=== PATIENT | female | born 1930 | race Caucasian/White ===

== ENCOUNTER → 2018-02-15 | Day surgery (SDC) | payer OTHER ==
[~2018-02-15] MED LIST: ACETAMINOPHEN/HYDROcodone 325 MG/5 MG TAB ONE; ALLO100T PO; BUME1TAB PO; CHOL5000 PO; COUM3TAB PO; CYAN1000P IM; ENAL2.5; HYDR-3583 PO; IOHEXOL 180 MG/ML 20 ML VIAL (for RAD DIAG) OTHER ONE; ISOS10TA3 PO; ISOS10TA35 PO; LACTATED RINGER'S 1000 ML INJ 1,000 ML ONE; LEVO.05 PO; LEVO125T4 PO; LEVO500T8 PO; LIDOCAINE HCL 1% 20 ML VIAL ONE; MAGN250T11 PO; MAPA500C PO; METF500 PO; METO100T PO; METO25CR PO; MIDAZOLAM HCL 2 MG/2 ML VIAL ONE; OXYB5TAB8 PO; PROPOFOL 100 MG/10 ML INJ IV ONE; SODI1 PO; SODI1TAB PO; TRIAMCINOLONE ACETONIDE 40 MG/ML VIAL ONE; VITA500015 CHEW; XARE10TA PO; XARE20TA PO
== END | disposition home or self-care (01) ==
LOC: ESDC 08:34
PROVIDERS: ATTEND Orthopaedic Surgery Orthopaedic Surgery of the Spine
DX: M25.551 Pain in right hip (principal); T84.090D Other mechanical complication of internal right hip prosthesis, subsequent encounter
CPT/HCPCS: 01200; 27275; 73501; 76000; 87015; 87070; 87116; 87205; 87206; J2250; J3010; J7120; Q9965; J3301

== ENCOUNTER 2018-02-22 09:34 | Inpatient (IN) | payer OTHER, MEDICARE ==
[~2018-02-22] VITALS: Ht 152.4 cm; Wt 79.5 kg
[~2018-02-22 09:34] MED LIST changes: -ACETAMINOPHEN/HYDROcodone 325 MG/5 MG TAB ONE; -COUM3TAB PO; -ENAL2.5; -HYDR-3583 PO; -IOHEXOL 180 MG/ML 20 ML VIAL (for RAD DIAG) OTHER ONE; -ISOS10TA35 PO; -LACTATED RINGER'S 1000 ML INJ 1,000 ML ONE; -LEVO.05 PO; -LEVO500T8 PO; -LIDOCAINE HCL 1% 20 ML VIAL ONE; -METF500 PO; -METO25CR PO; -MIDAZOLAM HCL 2 MG/2 ML VIAL ONE; -PROPOFOL 100 MG/10 ML INJ IV ONE; -SODI1 PO; -TRIAMCINOLONE ACETONIDE 40 MG/ML VIAL ONE; -VITA500015 CHEW; -XARE10TA PO
[2018-02-22] MEDS ORDERED: CHLORHEXIDINE GLUCONATE 4% SOLN 120 ML BTL TOPICAL SCH (10:15)
[2018-02-22] MEDS ORDERED: EXPAREL PERI-ARTICULAR INJECTION (TOTAL VOL. 60 ML) P-ARTICULR SCH ×2 (10:15)
[2018-02-22] MEDS ORDERED: VANCOMYCIN 1 GM/200 ML PREMIX IV SCH (10:15)
[2018-02-22] MEDS ORDERED: TRANEXAMIC ACID INJ 795 MG in SODIUM CHLORIDE 0.9% INJ 100 ML IV SCH (10:15)
[2018-02-22] MEDS ORDERED: VANCOMYCIN HCL 1000 MG VIAL ONE ×2 (10:26→15:29)
[2018-02-22] MEDS ORDERED: SODIUM CHLOR 0.9% 250 ML INJ 250 ML ONE (10:26)
[2018-02-22] MEDS ORDERED: CHLORHEXIDINE GLUCONATE 2 % 1 PACK (2 CLOTHS) TOPICAL PRN (10:30)
[2018-02-22] MEDS ORDERED: POVIDONE IODINE 5% (ANTISEPSIS KIT) 4 APPLICATIONS EACH NARE PRN (10:30)
[2018-02-22] MEDS ORDERED: INSULIN HUMAN REGULAR 1,000 UNITS/10 ML VIAL SQ PRN (10:30)
[2018-02-22] MEDS ORDERED: METOPROLOL TARTRATE 25 MG TAB PO PRN (10:30)
[2018-02-22] MEDS ORDERED: SODIUM CHLORID 0.9% 500 ML IV PRN (10:30)
[2018-02-22] MEDS ORDERED: LACTATED RINGER'S 1000 ML IV PRN (10:30)
[2018-02-22] MEDS ORDERED: LEVO500T8 PO (10:53)
[2018-02-22 10:59] LABS: AUTOMATED NEUTROPHIL # 3.5 TH/MM3 (1.8-7.7); BASOPHIL % 0.7 % (0.0-2.0); EOSINOPHIL # 0.2 TH/MM3 (0-0.4); EOSINOPHIL % 3.1 % (0.0-4.0); HEMATOCRIT 36.1 % (35.0-46.0); HEMOGLOBIN 11.8 GM/DL (11.6-15.3); LYMPH % 25.1 % (9.0-44.0); LYMPHOCYTE # 1.4 TH/MM3 (1.0-4.8); MEAN CELL VOLUME 89.8 FL (80.0-100.0); MEAN CORPUSCULAR HEMOGLOBIN 29.5 PG (27.0-34.0); MEAN CORPUSCULAR HGB CONC 32.8 % (32.0-36.0); MEAN PLATELET VOLUME 8.3 FL (7.0-11.0); MONO % 7.6 % (0.0-8.0); MONOCYTE # 0.4 TH/MM3 (0-0.9); NEUT % 63.5 % (16.0-70.0); PLATELET COUNT 185 TH/MM3 (150-450); RED BLOOD COUNT 4.02 MIL/MM3 (4.00-5.30); RED CELL DISTRIBUTION WIDTH 16.3 % (11.6-17.2); WHITE BLOOD COUNT 5.5 TH/MM3 (4.0-11.0)
[2018-02-22 11:21] LABS: BILIRUBIN, URINE NEG (NEG); BLOOD, URINE NEG (NEG); GLUCOSE,URINE NEG (NEG); KETONE, URINE NEG (NEG); NITRITE,URINE NEG (NEG); SQUAMOUS EPITHELIAL CELL URINE 1 /hpf (0-5); URINE COLOR LIGHT-YELLOW (YELLW/STRAW); URINE LEUKOCYTE ESTERASE SMALL (NEG)
[2018-02-22 11:24] LABS: BICARBONATE 28.3 MEQ/L (21.0-32.0); CALCIUM 9.1 MG/DL (8.5-10.1)
[2018-02-22] MEDS ORDERED: GENTAMICIN SULFATE 80 MG/2 ML VIAL ONE (12:23)
[2018-02-22] MEDS ORDERED: ceFAZolin INJ 1,000 MG VIAL ONE (12:23)
[2018-02-22] MEDS ORDERED: HEPARIN SODIUM - SQ 10,000 UNITS/ML VIAL ONE (12:24)
[2018-02-22] MEDS ORDERED: GELFOAM SIZE 100 ONE (12:24)
[2018-02-22] MEDS ORDERED: SUGAMMADEX SODIUM 200 MG/2 ML VIAL IV PUSH ONE (12:57)
[2018-02-22] MEDS ORDERED: ACETAMINOPHEN 1000 MG/100 ML 100 ML IV ONE (12:57)
[2018-02-22] MEDS ORDERED: HYDROmorphone HCL PF 2 MG/ML VIAL ONE (12:57)
[2018-02-22] MEDS ORDERED: NALOXONE HCL 0.4 MG/ML AMP ONE (12:58)
[2018-02-22] MEDS ORDERED: SODIUM CHLORIDE 0.9% 20 ML VIAL ONE (14:18)
[2018-02-22] MEDS ORDERED: BUPIVACAINE/EPINEPHRINE 0.25% PF 10 ML VIAL INFIL ONE (15:04)
--- NOTE | 2018-02-22 16:58 | PD.OP ---
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 Painful right total hip Postoperative Diagnosis: Same Procedure: Revision right total hip replacement arthroplasty. Right femoral shaft osteotomy with internal fixation and repair Anesthesia: General Surgeon: Carlton Galindo Link Trainer(s): YAZMIN Mack Operation and Findings: EBL: 800 cc INDICATION: This patient is an 87-year-old female with severe pain in her right hip. Investigative studies shows evidence of fatigue of a right femoral stem which was placed in her in 1998. It has lived beyond its life expectancy and she is now had a failure of the stem. She now presents for revision arthroplasty NOTE: Linn Mack PA-C was present for the entire surgical procedure as my tiler's assistant. In my medical opinion her skill and care was necessary for the proper management of this patient. COMPONENTS: COMPANY: [employer] CUP: Duraloc, 52 mm STEM: Size 12 mm, AML straight stem, small triangle, 8 inch HEAD: 32 mm, +5 12/14 taper, metal Plastic: 32 mm, constrained PROCEDURE: This patient was brought to the operating room and anesthetized in the supine position and positioned on the routine table in the clean air suite. The patient was then rolled to a right side up lateral position and held with a Biomet hip positioner. The hip and leg was scrubbed with alcohol followed by Hibiclens followed by chloro prep and draped sterilely. A timeout was done and antibiotics were given within a routine time window. A 7 inch incision was made starting along the posterior one third of the greater trochanter. The iliotibial band was opened in line with the incision. The Charnley retractors were positioned. The posterior capsule and external rotators were taken down together in a sleeve. The posterior capsule was approached. An arthrotomy was created. Soft tissue was dissected around the proximal femur. The femoral stem was loose. The hip was dislocated posteriorly. An osteotome was used to remove some heterotopic bone near the top of the femur. The proximal portion of the stem was removed in a retrograde fashion. Soft tissue dissection was removed around the plastic. Moderate wear of popliteal polyethylene was noted. The plastic was removed in a retrograde fashion. The locking ring was removed. A 28 mm trial plastic was positioned to protect the cup. The cup was quite stable and orientation was felt to be satisfactory. The posterior aspect of the femur was dissected. The gluteus gonzalo was taken down from the linea aspera. The stem was measured carefully and an osteotomy was planned. An oscillating saw was used from posterior to anterior. A TPS drill was used with a bur at the level of the osteotomy. The greater trochanter and femoral shaft was opened in a coffin lid type fashion. The very top of the stem was identified. The leg was brought around into the proper position. A bur was used to gain entrance into the interface between the bone and the prosthesis. A trephine drill was used to drill over the remnant portion of the stem. The stem was then removed in retrograde fashion. There was a pedestal at the tip of the stem. This was drilled through with the drill followed by all of reamers up to 11 mm. We then switched to straight reamers and reamed the canal anticipating at 8 inch straight stem. We reamed to 11.5 mm. A trial reduction showed excellent balancing with the stem in approximately 15 of anteversion. The hip appeared to be very stable. The attention was directed to the acetabulum. The trial liner was removed. This child was checked and it was quite stable. A new ring was placed on the inside and a 32 mm locking acetabular liner was impacted and felt to be stable. The canal was reamed one more time with a straight 11-1/2 mm reamer. An 8 inch 12 mm stem, small triangle was utilized. This is impacted approximately 15 of anteversion. The stem had a very solid fit especially over the last 6 cm. Rotational control was felt to be very satisfactory as well as axial control. A trial reduction showed the +5 neck length fit best. A 32 mm metal +5 head was impacted. The hip was reduced. The retaining ring was placed around this. Leg lengths appeared to be equal. The wound was irrigated copiously. A super cable was placed around the shaft of the femur just before placement of the stem. The osteotomy was contoured slightly and then closed and 6 secured with 2 cables. The system was tightened according to shredder tender's recommendation. Vancomycin powder was placed deep. The wound was irrigated prior to placing that. The gluteus gonzalo tendon was repaired at its insertion. The fascia was closed with running double loop PDS. Vancomycin powder was placed in the subcutaneous tissue. Deep tissue was approximated with 0 Vicryl suture, subcutaneous tissue with 2-0 Vicryl suture and skin with running intradermal 3- 0 Vicryl followed by benzoin and Steri-Strips. A sterile dressing was applied. The patient was awakened and taken to the recovery room in satisfactory condition The patient was awakened and taken to the recovery room in satisfactory condition FINDINGS: There was a fracture of the stem approximately midportion. Bone quality was felt to be satisfactory. There is no complication that was appreciated Carlton Galindo MD February 22, 2018 16:58
[2018-02-22] MEDS: LACTATED RINGER'S 1000 ML INJ 1,000 ML IV SCH (17:00)
[2018-02-22] MEDS ORDERED: MORPHINE SULFATE 8 MG/ML INJ IM PRN (17:00)
[2018-02-22] MEDS ORDERED: ACETAMINOPHEN/HYDROcodone 325 MG/10 MG TAB PO PRN (17:00)
[2018-02-22] MEDS ORDERED: Post-op Orders (for Pharmacy) XX ONE (17:00)
[2018-02-22] MEDS ORDERED: ALUMINUM/MAGNESIUM/SIMETH 30 ML CUP PO PRN (17:00)
[2018-02-22] MEDS ORDERED: NALOXONE HCL 0.4 MG/ML AMP IV PUSH PRN (17:00)
[2018-02-22] MEDS ORDERED: DO NOT ADM ANY ANTICOAGULANT DRUGS PRN (17:18)
[2018-02-22] MEDS ORDERED: *morphine SULFATE 10 MG/ML PERIprocedure ONLY ONE ×2 (17:20→17:57)
[2018-02-22] MEDS ORDERED: MORPHINE SULFATE 4 MG/ML INJ ONE (17:22)
[2018-02-22] MEDS ORDERED: HYDR-3583 PO (17:35)
[2018-02-22] MEDS ORDERED: XARE10TA PO (17:35)
--- NOTE | 2018-02-22 17:47 | RADRPT ---
EXAM DATE/TIME: 02/22/2018 18:23 [place] COMPARISON: No previous studies available for comparison. INDICATIONS : Total right hip arthroplasty. MEDICAL HISTORY : Hypertension. Diabetes mellitus type 2. SURGICAL HISTORY : None. ENCOUNTER: Initial ACUITY: 1 day PAIN SCORE: 10/10 LOCATION: Right hip FINDINGS: A two view examination of the right hip was performed. Postoperative right total hip replacement. Nor mal alignment. Osteotomy proximal right femur. CONCLUSION: 1. Postoperative right hip replacement. Normal alignment. Moises Abdalla MD on February 22, 2018 at 17:44 Board Certified Radiologist. This report was verified electronically.
[2018-02-22] MEDS: ACETAMINOPHEN/HYDROcodone 325 MG/10 MG TAB PO PRN ×2 (18:52→23:08)
[2018-02-22 19:37] VITALS: BP 101/56; PULSE 89; RESP 18; TEMP 97.7; O2SAT 97
[2018-02-22] MEDS: MAGNESIUM HYDROXIDE SUSP 30 ML CUP PO SCH (20:52)
[2018-02-22] MEDS: SENNOSIDES 8.6 MG TAB PO SCH (20:53)
[2018-02-22] MEDS: BUMETANIDE 1 MG TAB PO SCH (20:53)
[2018-02-22 23:00] VITALS: BP 119/54; PULSE 64; RESP 16; TEMP 97.3; O2SAT 97
[2018-02-23] VITALS (8 sets, daily range): BP systolic 93–117; BP diastolic 42–57; PULSE 60–77; RESP 17–18; TEMP 97.3–97.7; O2SAT 92–98
[2018-02-23] MEDS: TEMAZEPAM 15 MG CAP PO PRN (01:12)
[2018-02-23 04:06] LABS: HEMATOCRIT 26.7 % (35.0-46.0); HEMOGLOBIN 8.8 GM/DL (11.6-15.3)
[2018-02-23] MEDS: LEVOTHYROXINE SODIUM 125 MCG TAB PO SCH (05:10)
[2018-02-23] MEDS: ACETAMINOPHEN/HYDROcodone 325 MG/10 MG TAB PO PRN ×3 (05:10→14:05)
[2018-02-23] MEDS: LACTATED RINGER'S 1000 ML INJ 1,000 ML IV SCH ×3 (05:11→20:17)
--- NOTE | 2018-02-23 07:49 | PD.ORT.PN ---
Subjective Subjective Remarks No complaint. Very little pain. Daughter at bedside. Pleased with results so far Objective Vitals Vital Signs Date Time Temp Pulse Resp B/P (MAP) Pulse Ox O2 Delivery O2 Flow Rate FiO2 02/23/18 04:04 97.3 68 17 98/57 (71) 98 02/22/18 23:00 97.3 64 16 119/54 (75) 97 02/22/18 19:37 97.7 89 18 101/56 (71) 97 02/22/18 18:15 98.1 93 15 103/62 (76) 96 Nasal Cannula 3 02/22/18 18:00 60 11 94/57 (69) 98 Nasal Cannula 3 02/22/18 17:45 85 14 117/65 (82) 98 Nasal Cannula 3 02/22/18 17:30 85 14 114/60 (78) 98 Nasal Cannula 3 02/22/18 17:15 96.6 88 15 114/55 (74) 95 Nasal Cannula 3 02/22/18 10:38 97.8 65 20 158/77 (104) 95 I/O 02/22/18 02/22/18 02/22/18 02/23/18 02/23/18 02/23/18 07:00 15:00 23:00 07:00 15:00 23:00 Intake Total 3500 ml 240 ml Output Total 1690 ml 340 ml Balance 1810 ml -100 ml Intake Oral 240 ml Other 3500 ml Output Urine Total 800 ml 300 ml Drainage Total 90 ml 40 ml Estimated Blood Loss 800 ml # Bowel Movements 0 Result Diagram: 02/23/18 0351 02/22/18 1030 Imaging Last 24 hours Impressions Hip X-Ray 02/22/18 1479 Signed Impressions: Service Date/Time: February 18:23 - CONCLUSION: 1. Postoperative right hip replacement. Normal alignment. Moises Abdalla MD Objective Remarks Patient is lying in bed. Right hip incision with no drainage. Mild swelling. No redness or warmth. Leg lengths equal. No calf tenderness. Neuro exam normal Assessment & Plan Assessment and Plan Malfunctioning right total hip replacement. Broken right femoral stem ([facility] [place] [facility] 1998). SURGERY: Revision right [facility] [place] [facility]ESUS, femoral shaft osteotomy with internal fixation: POD #1. PLAN: Toe-touch weightbearing. Patient on Xarelto 10 mg per day for 1 week then increase back to preop dosage of 20 mg per day. [place] as needed for pain. Anticipate SNF on Monday. Forms filled out. No dressing change unless it becomes saturated. DC drain today Carlton Galindo MD February 23, 2018 07:49
--- NOTE | 2018-02-23 07:51 | HHI.DCPOC ---
Discharge Care Plan Diagnosis: (1) Loose total hip arthroplasty Additional Problems History of chronic anticoagulation Goals to Promote Your Health * To prevent worsening of your condition and complications * To maintain your health at the optimal level Directions to Meet Your Goals Take your medications as prescribed Follow your dietary instruction Follow activity as directed Keep your appointments as scheduled Take your immunizations and boosters as scheduled If your symptoms worsen call your PCP, if no PCP go to Urgent Care Center or Emergency Room Smoking is Dangerous to Your Health. Avoid second hand smoke Call the 24-hour hour crisis hotline for domestic abuse at Carlton Galindo MD February 23, 2018 07:51
--- NOTE | 2018-02-23 07:55 | HHI.DS ---
Discharge Summary Admission Date February 22, 2018 at 09:34 Discharge Date: February 25, 2018 Admitting Diagnosis Malfunctioning right total hip replacement Diagnosis: Procedures Revision right total hip replacement. Right femoral shaft osteotomy with internal fixation Brief History This is a 87 year old female patient CBC/BMP: 02/23/18 0351 02/22/18 1030 Significant Findings Laboratory Tests Test 02/22/18 10:30 02/23/18 03:51 Urine Leukocyte Esterase SMALL (NEG) Blood Urea Nitrogen 19 MG/DL (7-18) Random Glucose 109 MG/DL (74-106) Estimat Glomerular Filtration Rate 52 ML/MIN (>89) Hemoglobin 8.8 GM/DL (11.6-15.3) Hematocrit 26.7 % (35.0-46.0) Imaging Postoperative x-ray of the right hip show satisfactory position of the right total hip replacement PE at Discharge Patient is lying in bed. Right hip incision with no drainage. Mild swelling. No redness or warmth. Leg lengths equal. No calf tenderness. Neuro exam normal Hospital Course The patient was admitted electively for total hip replacement. She had a previous total hip replaced in 1998 and suffered a broken stem related to fatigue. She presents for elective revision arthroplasty. She was admitted to the hospital and taken to the operating room and the date of admission. She had an 800 cc blood loss. Postoperative hemoglobin was 8.8. This was monitored and her postoperative course Discharge Disposition: Discharge to SNF Discharge Instructions Diet Instructions: As Tolerated, No Restrictions Activities You Can Perform: Toe Touch Weight Bearing Activities to Avoid: Lifting/Bending, Bathing (For 7 days) Additional Activity Instruc.: Routine total hip precaution, posterior hip precautions. The patient does not need an abduction pillow Carlton Galindo MD February 23, 2018 07:54
[2018-02-23] MEDS ORDERED: WALKER/ADULT/FO1 MIS (07:56)
[2018-02-23] MEDS: METOPROLOL TARTRATE 100 MG TAB PO SCH (08:51)
[2018-02-23] MEDS: BUMETANIDE 1 MG TAB PO SCH ×2 (08:51→20:15)
[2018-02-23] MEDS: ALLOPURINOL 100 MG TAB PO SCH (08:51)
[2018-02-23] MEDS: OXYBUTYNIN CHLORIDE 5 MG TAB PO SCH (08:51)
[2018-02-23] MEDS: SODIUM CHLORIDE 1 GRAM TAB PO SCH (08:52)
[2018-02-23] MEDS: MAGNESIUM HYDROXIDE SUSP 30 ML CUP PO SCH ×2 (08:52→20:15)
[2018-02-23] MEDS ORDERED: LEVOFLOXACIN 500 MG TAB PO SCH (09:00)
[2018-02-23] MEDS: ISOSORBIDE MONONITRATE 20 MG TAB PO SCH (09:00)
[2018-02-23] MEDS: RIVAROXABAN 10 MG TAB PO SCH (16:46)
[2018-02-23] MEDS: ONDANSETRON ODT 4 MG TAB PO PRN (18:46)
[2018-02-23] MEDS: SENNOSIDES 8.6 MG TAB PO SCH (20:15)
[2018-02-24] MEDS: ACETAMINOPHEN/HYDROcodone 325 MG/10 MG TAB PO PRN ×2 (03:51→09:14)
[2018-02-24 04:59] VITALS: O2SAT 94
[2018-02-24] MEDS: LEVOTHYROXINE SODIUM 125 MCG TAB PO SCH (05:20)
--- NOTE | 2018-02-24 07:21 | PD.ORT.PN ---
Subjective Subjective Remarks pt has post operative hip pain Objective Vitals Vital Signs Date Time Temp Pulse Resp B/P (MAP) Pulse Ox O2 Delivery O2 Flow Rate FiO2 02/24/18 04:59 94 02/24/18 04:41 18 02/23/18 23:19 97.5 68 17 117/55 (75) 95 02/23/18 23:04 Room Air 02/23/18 19:34 97.6 77 18 107/57 (74) 92 02/23/18 16:00 97.6 69 18 116/57 (76) 95 02/23/18 12:52 96/42 (60) 02/23/18 12:49 97.7 60 18 93 02/23/18 12:00 93/53 (66) 02/23/18 09:06 97.6 66 18 106/51 (69) 96 I/O 02/23/18 02/23/18 02/23/18 02/24/18 02/24/18 02/24/18 07:00 15:00 23:00 07:00 15:00 23:00 Intake Total 240 ml 100 ml 1900 ml 480 ml Output Total 340 ml 75 ml 165 ml 30 ml Balance -100 ml 25 ml 1735 ml 450 ml Intake Oral 240 ml 900 ml 480 ml IV Total 100 ml 1000 ml Output Urine Total 300 ml 5 ml 75 ml Drainage Total 40 ml 70 ml 90 ml 30 ml Bladder Scan Volume Amount 48 ml # Voids 1 5 # Bowel Movements 0 1 0 Result Diagram: 02/23/18 0351 02/22/18 1030 Imaging Last 24 hours Impressions Hip X-Ray 02/22/18 1659 Signed Impressions: Service Date/Time: February 18:23 - CONCLUSION: 1. Postoperative right hip replacement. Normal alignment. Moises Abdalla MD Procedures Revision right total hip replacement. Right femoral shaft osteotomy with internal fixation Objective Remarks pt comfortable Right hip incision with no drainage. Mild swelling. No redness or warmth. Leg lengths equal. No calf tenderness. Neuro exam normal Assessment & Plan Assessment and Plan Malfunctioning right total hip replacement. Broken right femoral stem ([facility] [place] [facility] 1998). SURGERY: Revision right [facility]IA [facility] JESUS, femoral shaft osteotomy with internal fixation: POD #2. PLAN: Toe-touch weightbearing. Patient on Xarelto 10 mg per day for 1 week then increase back to preop dosage of 20 mg per day. [place] as needed for pain. Anticipate SNF on Monday. Forms filled out. No dressing change unless it becomes saturated OOB to chair today d/c drain today Will Galindo MD February 24, 2018 07:21
[2018-02-24 08:00] VITALS: BP 136/62; PULSE 75; RESP 18; TEMP 98; O2SAT 97
[2018-02-24] MEDS: MAGNESIUM HYDROXIDE SUSP 30 ML CUP PO SCH ×2 (08:23→19:54)
[2018-02-24] MEDS: BUMETANIDE 1 MG TAB PO SCH ×2 (08:27→19:52)
[2018-02-24] MEDS: SODIUM CHLORIDE 1 GRAM TAB PO SCH (08:28)
[2018-02-24] MEDS: ISOSORBIDE MONONITRATE 20 MG TAB PO SCH (08:28)
[2018-02-24] MEDS: METOPROLOL TARTRATE 100 MG TAB PO SCH (08:28)
[2018-02-24] MEDS: ALLOPURINOL 100 MG TAB PO SCH (08:28)
[2018-02-24] MEDS: ONDANSETRON ODT 4 MG TAB PO PRN (08:28)
[2018-02-24] MEDS: OXYBUTYNIN CHLORIDE 5 MG TAB PO SCH (08:28)
[2018-02-24] MEDS: LEVOFLOXACIN 250 MG TAB PO SCH (08:28)
[2018-02-24] MEDS: LACTATED RINGER'S 1000 ML INJ 1,000 ML IV SCH ×2 (13:52→19:54)
[2018-02-24] MEDS: RIVAROXABAN 10 MG TAB PO SCH (18:21)
[2018-02-24] MEDS ORDERED: ACETAMINOPHEN 325 MG TAB PO PRN (19:15)
[2018-02-24] MEDS: ACETAMINOPHEN 325 MG TAB PO PRN (19:53)
[2018-02-24] MEDS: SENNOSIDES 8.6 MG TAB PO SCH (19:54)
[2018-02-24 19:55] VITALS: BP 102/49; PULSE 70; RESP 16; TEMP 98.1; O2SAT 98
[2018-02-25 00:15] VITALS: BP 102/55; PULSE 77; RESP 17; TEMP 97.9; O2SAT 94
[2018-02-25] MEDS: TEMAZEPAM 15 MG CAP PO PRN (02:02)
[2018-02-25] MEDS: ACETAMINOPHEN 325 MG TAB PO PRN ×3 (02:05→19:55)
[2018-02-25] MEDS: LEVOTHYROXINE SODIUM 125 MCG TAB PO SCH (06:08)
--- NOTE | 2018-02-25 06:50 | PD.ORT.PN ---
Subjective Subjective Remarks pt has post operative hip pain, states she had diarrhea yesterday all day, feeling better today Objective Vitals Vital Signs Date Time Temp Pulse Resp B/P (MAP) Pulse Ox O2 Delivery O2 Flow Rate FiO2 02/25/18 00:15 97.9 77 17 102/55 (71) 94 02/24/18 19:55 98.1 70 16 102/49 (66) 98 02/24/18 10:14 17 02/24/18 08:00 98.0 75 18 136/62 (86) 97 I/O 02/24/18 02/24/18 02/24/18 02/25/18 02/25/18 02/25/18 07:00 15:00 23:00 07:00 15:00 23:00 Intake Total 480 ml Output Total 30 ml Balance 450 ml Intake Oral 480 ml Drainage Total 30 ml # Voids 5 6 # Bowel Movements 0 5 Result Diagram: 02/24/18 0632 02/22/18 1030 Imaging Last 24 hours Impressions Hip X-Ray 02/22/18 1659 Signed Impressions: Service Date/Time: February 18:23 - CONCLUSION: 1. Postoperative right hip replacement. Normal alignment. Moises Abdalla MD Procedures Revision right total hip replacement. Right femoral shaft osteotomy with internal fixation Objective Remarks pt doing better today Right hip incision with no drainage. Mild swelling. No redness or warmth. Leg lengths equal. No calf tenderness. Neuro exam normal Assessment & Plan Assessment and Plan Malfunctioning right total hip replacement. Broken right femoral stem ([facility] [place] J[facility] 1998). SURGERY: Revision right MARIA DE JESUS, femoral shaft osteotomy with internal fixation: POD #3 PLAN: Toe-touch weightbearing. Patient on Xarelto 10 mg per day for 1 week then increase back to preop dosage of 20 mg per day. [place] as needed for pain. Anticipate SNF today. Forms filled out. Ferrous sulfate 325 bid for surgical blood loss anemia No dressing change unless it becomes saturated Called patient's daughter and spoke to her about her mother, clinical condition and discharge plan Will Galindo MD February 25, 2018 06:50
[2018-02-25 08:00] VITALS: BP 111/56; PULSE 62; RESP 18; TEMP 98; O2SAT 92
[2018-02-25] MEDS: ISOSORBIDE MONONITRATE 20 MG TAB PO SCH (08:58)
[2018-02-25] MEDS: BUMETANIDE 1 MG TAB PO SCH ×2 (08:58→19:55)
[2018-02-25] MEDS: FERROUS SULFATE 325 MG (65 MG ELEMENTAL IRON) TAB PO SCH ×2 (08:59→19:55)
[2018-02-25] MEDS: SODIUM CHLORIDE 1 GRAM TAB PO SCH (08:59)
[2018-02-25] MEDS: LEVOFLOXACIN 250 MG TAB PO SCH (09:00)
[2018-02-25] MEDS: OXYBUTYNIN CHLORIDE 5 MG TAB PO SCH (09:00)
[2018-02-25] MEDS: METOPROLOL TARTRATE 100 MG TAB PO SCH (09:00)
[2018-02-25] MEDS: ALLOPURINOL 100 MG TAB PO SCH (09:00)
[2018-02-25] MEDS: MAGNESIUM HYDROXIDE SUSP 30 ML CUP PO SCH ×2 (09:00→19:55)
[2018-02-25] MEDS: LACTATED RINGER'S 1000 ML INJ 1,000 ML IV SCH ×3 (09:52→19:56)
[2018-02-25 12:00] VITALS: BP 87/50; PULSE 71; RESP 16; TEMP 98; O2SAT 92
[2018-02-25 16:00] VITALS: BP 108/53; PULSE 73; RESP 16; TEMP 98.1; O2SAT 96
[2018-02-25] MEDS: RIVAROXABAN 10 MG TAB PO SCH (17:39)
[2018-02-25] MEDS: SENNOSIDES 8.6 MG TAB PO SCH (19:55)
[2018-02-25 20:07] VITALS: BP 105/55; PULSE 71; RESP 17; TEMP 97.6; O2SAT 92
[2018-02-26 00:45] VITALS: BP 115/55; PULSE 60; RESP 17; TEMP 97.8; O2SAT 92
[2018-02-26] MEDS: ACETAMINOPHEN 325 MG TAB PO PRN ×2 (05:37→12:10)
[2018-02-26] MEDS: LEVOTHYROXINE SODIUM 125 MCG TAB PO SCH (05:37)
[2018-02-26 07:39] VITALS: BP 150/65; PULSE 70; RESP 18; TEMP 98.1; O2SAT 94
[2018-02-26] MEDS: SODIUM CHLORIDE 1 GRAM TAB PO SCH (08:28)
[2018-02-26] MEDS: ALLOPURINOL 100 MG TAB PO SCH (08:28)
[2018-02-26] MEDS: METOPROLOL TARTRATE 100 MG TAB PO SCH (08:29)
[2018-02-26] MEDS: OXYBUTYNIN CHLORIDE 5 MG TAB PO SCH (08:29)
[2018-02-26] MEDS: BUMETANIDE 1 MG TAB PO SCH ×2 (08:29→19:56)
[2018-02-26] MEDS: LEVOFLOXACIN 250 MG TAB PO SCH (08:29)
[2018-02-26] MEDS: ISOSORBIDE MONONITRATE 20 MG TAB PO SCH (08:29)
[2018-02-26] MEDS: FERROUS SULFATE 325 MG (65 MG ELEMENTAL IRON) TAB PO SCH ×2 (08:29→19:56)
[2018-02-26] MEDS: MAGNESIUM HYDROXIDE SUSP 30 ML CUP PO SCH ×2 (08:31→19:55)
[2018-02-26 11:26] VITALS: BP 107/56; PULSE 66; RESP 18; TEMP 98.1; O2SAT 95
[2018-02-26 15:34] VITALS: BP 103/58; PULSE 69; RESP 18; TEMP 97.5; O2SAT 94
[2018-02-26] MEDS: LACTATED RINGER'S 1000 ML INJ 1,000 ML IV SCH ×2 (15:52→23:04)
[2018-02-26] MEDS ORDERED: ACETAMINOPHEN/HYDROcodone 325 MG/5 MG TAB PO PRN (16:00)
[2018-02-26] MEDS: RIVAROXABAN 10 MG TAB PO SCH (16:01)
[2018-02-26] MEDS: ACETAMINOPHEN/HYDROcodone 325 MG/5 MG TAB PO PRN ×2 (16:01→19:59)
[2018-02-26] MEDS: SENNOSIDES 8.6 MG TAB PO SCH (19:55)
[2018-02-26 20:00] VITALS: BP 131/56; PULSE 69; RESP 18; TEMP 97.2; O2SAT 93
[2018-02-27] MEDS: ACETAMINOPHEN/HYDROcodone 325 MG/5 MG TAB PO PRN ×4 (00:02→16:47)
[2018-02-27] MEDS: TEMAZEPAM 15 MG CAP PO PRN (00:02)
[2018-02-27 00:51] VITALS: BP 118/58; PULSE 64; RESP 18; TEMP 98.6; O2SAT 93
[2018-02-27] MEDS: LEVOTHYROXINE SODIUM 125 MCG TAB PO SCH (05:34)
[2018-02-27 07:31] VITALS: BP 151/75; PULSE 75; RESP 19; TEMP 97.6; O2SAT 93
[2018-02-27] MEDS: SODIUM CHLORIDE 1 GRAM TAB PO SCH (07:48)
[2018-02-27] MEDS: BUMETANIDE 1 MG TAB PO SCH (07:49)
[2018-02-27] MEDS: FERROUS SULFATE 325 MG (65 MG ELEMENTAL IRON) TAB PO SCH (07:49)
[2018-02-27] MEDS: LEVOFLOXACIN 250 MG TAB PO SCH (07:49)
[2018-02-27] MEDS: ISOSORBIDE MONONITRATE 20 MG TAB PO SCH (07:49)
[2018-02-27] MEDS: METOPROLOL TARTRATE 100 MG TAB PO SCH (07:49)
[2018-02-27] MEDS: ALLOPURINOL 100 MG TAB PO SCH (07:49)
[2018-02-27] MEDS: MAGNESIUM HYDROXIDE SUSP 30 ML CUP PO SCH (07:50)
[2018-02-27] MEDS: OXYBUTYNIN CHLORIDE 5 MG TAB PO SCH (07:50)
--- NOTE | 2018-02-27 07:54 | PD.ORT.PN ---
Subjective Subjective Remarks No complaint. Mild pain. Still here because of no authorization by her insurance company for transfer to assisted Objective Vitals Vital Signs Date Time Temp Pulse Resp B/P (MAP) Pulse Ox O2 Delivery O2 Flow Rate FiO2 02/27/18 07:31 97.6 75 19 151/75 (100) 93 02/27/18 00:51 98.6 64 18 118/58 (78) 93 02/26/18 20:00 97.2 69 18 131/56 (81) 93 02/26/18 17:01 18 02/26/18 15:34 97.5 69 18 103/58 (73) 94 02/26/18 13:10 18 02/26/18 11:26 98.1 66 18 107/56 (73) 95 I/O 02/26/18 02/26/18 02/26/18 02/27/18 02/27/18 02/27/18 07:00 15:00 23:00 07:00 15:00 23:00 Intake Total 360 ml 500 ml Output Total 0 ml Balance 360 ml 500 ml Intake Oral 360 ml 500 ml Stool Total 0 ml # Voids 3 4 2 # Bowel Movements 0 0 0 Result Diagram: 02/24/18 0632 Imaging Last 24 hours Impressions Hip X-Ray 02/22/18 1659 Signed Impressions: Service Date/Time: February 18:23 - CONCLUSION: 1. Postoperative right hip replacement. Normal alignment. Moises Abdalla MD Procedures Revision right total hip replacement. Right femoral shaft osteotomy with internal fixation Objective Remarks Right hip incision with no drainage. Mild swelling. No redness or warmth. Leg lengths equal. No calf tenderness. Neuro exam normal Assessment & Plan Assessment and Plan Malfunctioning right total hip replacement. Broken right femoral stem ([facility]IA [place] JESUS 1998). SURGERY: Revision right [facility]IA [facility] JESUS, femoral shaft osteotomy with internal fixation: POD #5 PLAN: Toe-touch weightbearing. Patient on Xarelto 10 mg per day for 1 week then increase back to preop dosage of 20 mg per day. [place] as needed for pain. Anticipate SNF today. Forms filled out. Ferrous sulfate 325 bid for surgical blood loss anemia No dressing change unless it becomes saturated Case discussed with Fang, nurse optical store manager. We will transfuse 1 unit of packed red blood cells Carlton Galindo MD February 27, 2018 07:54
[2018-02-27 11:30] VITALS: BP 121/58; PULSE 61; RESP 18; TEMP 98.5; O2SAT 94
[2018-02-27] MEDS: LACTATED RINGER'S 1000 ML INJ 1,000 ML IV SCH (11:52)
[2018-02-27 13:09] VITALS: BP 133/60; PULSE 66; RESP 18; TEMP 97.6; O2SAT 93
[2018-02-27 13:24] VITALS: BP 138/66; PULSE 72; RESP 18; TEMP 97.6; O2SAT 94
[2018-02-27] MEDS: RIVAROXABAN 10 MG TAB PO SCH (16:47)
[2018-02-27 17:00] VITALS: BP 140/63; PULSE 60; RESP 18; TEMP 98.3; O2SAT 95
--- NOTE | 2018-02-28 07:29 | HHI.DS ---
Discharge Summary Admission Date February 22, 2018 at 09:34 Discharge Date: February 27, 2018 Admitting Diagnosis Malfunctioning right total hip replacement arthroplasty Diagnosis: (1) Loose total hip arthroplasty ICD Codes: T84.038A - Mechanical loosening of other internal prosthetic joint, initial encounter; Z96.649 - Presence of unspecified artificial hip joint Procedures Revision right total hip replacement. Right femoral shaft osteotomy with internal fixation Brief History This is a 87 year old female patient with a history of right total hip replacement performed in [place] approximately 19 years ago. Within the last 2 months she had become severely painful. Studies showed no evidence of infection. X-ray show evidence of a broken femoral stem in the proximal third. She is felt to be a candidate for revision total hip replacement CBC/BMP: 02/24/18 0632 Imaging Postoperative x-ray of the right hip shows evidence of internal fixation around the femoral shaft osteotomy with a revision total hip replacement stem in good alignment and position PE at Discharge Right hip incision with no drainage. Mild swelling. No redness or warmth. Leg lengths equal. No calf tenderness. Neuro exam normal Hospital Course The patient was admitted electively for revision hip arthroplasty. She had the above procedure performed on the date of admission. Her postoperative course was relatively unremarkable. Hemoglobin drifted below 8 and she received a unit of packed red blood cells on postop day #5. She was transferred to senior care on postop day #5. Pt Condition on Discharge: Good Discharge Disposition: Discharge to SNF Discharge Instructions Diet Instructions: As Tolerated, No Restrictions Activities You Can Perform: Toe Touch Weight Bearing Activities to Avoid: Lifting/Bending, Bathing (For 7 days) Additional Activity Instruc.: Routine total hip precaution, posterior hip precautions. The patient does not need an abduction pillow Carlton Galindo MD February 28, 2018 07:29
== END 2018-02-27 17:11 | DRG 467 ==
LOC: HSDI 09:34 → N06B 18:41
PROVIDERS: ADMIT Orthopaedic Surgery Orthopaedic Surgery of the Spine; ATTEND Orthopaedic Surgery Orthopaedic Surgery of the Spine
PROC: 0SUA09Z Supplement Right Hip Joint, Acetabular Surface with Liner, Open Approach (ICD-10-PCS; 2018-02-22)
PROC: 0SRR0JA Replacement of Right Hip Joint, Femoral Surface with Synthetic Substitute, Uncemented, Open Approach (ICD-10-PCS; 2018-02-22)
PROC: 0SPR0JZ Removal of Synthetic Substitute from Right Hip Joint, Femoral Surface, Open Approach (ICD-10-PCS; 2018-02-22)
PROC: 0SP909Z Removal of Liner from Right Hip Joint, Open Approach (ICD-10-PCS; principal; 2018-02-22 13:22)
PROC: 30233N1 Transfusion of Nonautologous Red Blood Cells into Peripheral Vein, Percutaneous Approach (ICD-10-PCS; 2018-02-27)
DX: T84.060A Wear of articular bearing surface of internal prosthetic right hip joint, initial encounter (principal); D62 Acute posthemorrhagic anemia; I48.91 Unspecified atrial fibrillation; N39.0 Urinary tract infection, site not specified; E66.9 Obesity, unspecified; Z96.642 Presence of left artificial hip joint; E11.9 Type 2 diabetes mellitus without complications; I73.9 Peripheral vascular disease, unspecified; I10 Essential (primary) hypertension; E78.5 Hyperlipidemia, unspecified; M81.0 Age-related osteoporosis without current pathological fracture; E03.9 Hypothyroidism, unspecified; I25.10 Atherosclerotic heart disease of native coronary artery without angina pectoris; R19.7 Diarrhea, unspecified; Z95.0 Presence of cardiac pacemaker; Z86.73 Personal history of transient ischemic attack (TIA), and cerebral infarction without residual deficits; Z86.718 Personal history of other venous thrombosis and embolism; Z68.34 Body mass index [BMI] 34.0-34.9, adult
CPT/HCPCS: 36430; 73502; 80048; 81001; 85014; 85018; 85025; 86850; 86900; 86901; 86920; 94150; C1713; C1776; J0131; J0690; J1170; J1580; J1644; J2270; J2310; J3010; J3370; J7050; J7120; P9016

== ENCOUNTER 2018-05-07 13:36 | Inpatient (IN) ==
[2018-05-07] MEDS ORDERED: Vancomycin Inj 1 GM/200 ML PIGGYBACK IV.SIG ONE (14:41)
[2018-05-07] MEDS ORDERED: Vancomycin Inj 1,000 MG in Sodium Chlor 0.9% Inj 250 ML IV.SIG ONE (15:00)
--- NOTE | 2018-05-07 15:12 | ED ---
HPI General Chief complaint: Medical Clearance Stated complaint: Medical Complaint Time Seen by Provider: 05/07/18 14:23 Source: patient and family Mode of arrival: wheelchair Limitations: no limitations History of Present Illness HPI narrative: 87-year-old female that presents to the ED for evaluation of right hip infection. Per patient she is been having redness and discomfort on the right hip since Monday. She was seen by Dr. Plascencia's office and had some blood work did not show any sign of acute disease at the time. I told her to apply ice and to reevaluate on Monday. She went again today to the office and they noticed that she had discharge from the wound where she had a hip replacement in February. She was told to come here. Prior to Dr. Plascencia himself of the day wound culture of the fluid. Patient was sent here for evaluation and admission for further evaluation of possible infection. Patient states that currently her pain is 4 out of 10. She states that the hip feels warm. Able to move it fully. Denies any numbness, drooling, weakness. Currently takes no antibiotics. States that she is borderline diabetic. No history of immunosuppression. No injury or trauma. Related Data Home Medications Medication Instructions Recorded Confirmed allopurinol 100 mg PO DAILY 05/07/18 05/07/18 bumetanide 1 mg PO DAILY 05/07/18 05/07/18 cholecalciferol (vitamin D3) 5,000 unit PO DAILY 05/07/18 05/07/18 [Vitamin D3] ferrous sulfate 325 mg PO DAILY 05/07/18 05/07/18 hydrocodone-acetaminophen 1 tab PO Q6H PRN 05/07/18 05/07/18 isosorbide mononitrate 10 mg PO BID 05/07/18 05/07/18 levothyroxine 125 mcg PO DAILY 05/07/18 05/07/18 melatonin 3 mg PO HS PRN 05/07/18 05/07/18 metoprolol tartrate 100 mg PO BID 05/07/18 05/07/18 oxybutynin chloride 5 mg PO DAILY 05/07/18 05/07/18 potassium chloride 20 meq PO DAILY 05/07/18 05/07/18 rivaroxaban [Xarelto] 20 mg PO DAILY 05/07/18 05/07/18 sodium chloride 2 tab PO DAILY 05/07/18 05/07/18 Allergies Allergy/AdvReac Type Severity Reaction Status Date / Time penicillin G Allergy Unknown Rash Verified 05/07/18 15:22 Review of Systems ROS Unobtainable All other systems reviewed negative except as stated in HPI [facility] Medical History Medical History A-fib (Acute) CHF (congestive heart failure) (Acute) FH: total knee replacement (Acute) Hip replacement planned (Acute) Hypertension (Acute) Pacemaker (Acute) Social History Social History Substance History: No History of Abuse Second Hand Smoke Exposure: No Smoking Status: Never smoker How Often Do You Have a Drink Containing Alcohol: 4 or more times a week Recent Travel in [facility] within the Last 8 Weeks: No Recent Out of Country Travel within the Last 8 Weeks: No Immunization History Tetanus Immunization: <5 Years Hx Influenza Vaccine This Season: Yes Exam Narrative Exam Narrative: GENERAL: Well-appearing SKIN: Focused skin assessment warm/dry. Patient has an area of redness and warmness to the right hip. This appeared to encompass most of the hip scar from the surgery. Warm to the touch. Some induration noted but no obvious fluctuance that I could notice. There is some serosanguineous fluid coming out of some of the openings from the scar. Patient able to move the hip fully but does have pain with any movement. Especially with internal/external rotation. 2+ pulses bilaterally. Sensation intact bilaterally. HEAD: Atraumatic. Normocephalic. EYES: Pupils equal and round. No scleral icterus. No injection or drainage. ENT: No nasal bleeding or discharge. Mucous membranes pink and moist. NECK: Trachea midline. No JVD. CARDIOVASCULAR: Regular rate and rhythm. No murmur appreciated. RESPIRATORY: No accessory muscle use. Clear to auscultation. Breath sounds equal bilaterally. GASTROINTESTINAL: Abdomen soft, non-tender, nondistended. Hepatic and splenic margins not palpable. MUSCULOSKELETAL: No obvious deformities. No clubbing. No cyanosis. No edema. NEUROLOGICAL: Awake and alert. No obvious cranial nerve deficits. Motor grossly within normal limits. Normal speech. PSYCHIATRIC: Appropriate mood and affect; insight and judgment normal. Course Initial Documented Vital Signs Temperature 97.7 F 05/07/18 13:42 Pulse Rate 70 07/23/18 13:42 Respiratory Rate 18 05/07/18 13:42 Blood Pressure 122/61 05/07/18 13:42 Pulse Oximetry 94 L 05/07/18 13:42 Last Documented Vital Signs Temperature 97.7 F 05/07/18 13:42 Pulse Rate 62 05/07/18 14:40 Respiratory Rate 18 05/07/18 14:40 Blood Pressure 113/57 L 05/07/18 14:40 Pulse Oximetry 97 05/07/18 14:40 Medical Decision Making MARY Attestation MARY supervised visit: Yes Attestation: I, Dr. Camara, have reviewed the advance practice practitioner's documentation and am in agreement, met with the patient face to face, made the diagnosis, and the medical decision making was done by me. *My assessment and Findings: Patient status post right hip surgery, presents from Dr. Galindo's office for suspected infected hip. Patient has what appears to be a definite infection. He has done an aspiration in the office. The patient is been started on vancomycin and will be admitted to the medicine service. She will likely have debridement tomorrow by Dr. Galindo. MDM Narrative Medical decision making narrative: 87-year-old female that presents to the ED for evaluation of right hip infection. Patient was properly examined and was found to have signs and symptoms consistent with appears to be likely hip infection. My attending Dr. Camara was able to speak with Dr. Plascencia over the phone who wanted patient to be started on vancomycin, cultures be taken, CT and labs and admission to medicine. Labs and imaging were ordered. Patient was started on vancomycin. Labs and imaging showed elevated lactic acid. Elevated CRP and what appears to be possible superficial infection from the CAT scan report. Possible abscess versus seroma. At this time patient will be admitted to [facility]. Dr. Arvizu agreed to admission. Differential Diagnosis Differential Diagnosis: Cellulitis versus postsurgical complication versus infected joint versus infected hardware Medical Records Medical records reviewed: Yes I reviewed the patient's medical records. Lab Data Lab results reviewed: Yes I reviewed the patient's lab results. Lab results narrative: CRP elevated lactic acid elevated Result diagrams: 05/07/18 14:40 05/07/18 16:00 Lab Results 05/07/18 05/07/18 05/07/18 Range/Units 14:40 14:40 14:40 WBC 8.2 (4.0-11.0) th/mm3 RBC 4.36 (4.00-5.30) mil/mm3 Hgb 13.6 (11.6-15.3) gm/dL Hct 40.8 (35.0-46.0) % MCV 93.5 (80.0-100.0) fL MCH 31.3 (27.0-34.0) pg MCHC 33.4 (32.0-36.0) % RDW 15.3 (11.6-17.2) % Plt Count 450 (150-450) th/mm3 MPV 8.8 (7.0-11.0) fL Neut % (Auto) 65.5 (16.0-70.0) % Lymph % (Auto) 25.2 (9.0-44.0) % [place] % (Auto) 6.6 (0.0-8.0) % Eos % (Auto) 1.9 (0.0-4.0) % Baso % (Auto) 0.8 (0.0-2.0) % Neut # (Auto) 5.4 (1.8-7.7) th/mm3 Lymph # (Auto) 2.1 (1.0-4.8) th/mm3 [place] # (Auto) 0.5 (0.0-0.9) th/mm3 Eos # (Auto) 0.2 (0.0-0.4) th/mm3 Baso # (Auto) 0.1 (0.0-0.2) th/mm3 WBC Differential . Differential Comment Auto diff final ESR 58 H (0-30) mm/hr PT (9.8-11.6) sec INR Ratio APTT (24.3-30.1) sec Sodium (136-145) meq/L Potassium (3.5-5.1) meq/L Chloride (98-107) meq/L Carbon Dioxide (21.0-32.0) meq/L Anion Gap (5-15) meq/L BUN (7-18) mg/dL Creatinine (0.50-1.00) mg/dL Estimated GFR (>89) mL/min Random Glucose (74-106) mg/dL Lactic Acid 2.5 H (0.4-2.0) mmol/L Calcium (8.5-10.1) mg/dL Total Bilirubin (0.2-1.0) mg/dL AST (15-37) U/L ALT (10-53) U/L Alkaline Phosphatase (45-117) U/L C-Reactive Protein (0.00-0.30) mg/dL Total Protein (6.4-8.2) g/dL Albumin (3.4-5.0) g/dL 05/07/18 05/07/18 Range/Units 16:00 16:00 WBC (4.0-11.0) th/mm3 RBC (4.00-5.30) mil/mm3 Hgb (11.6-15.3) gm/dL Hct (35.0-46.0) % MCV (80.0-100.0) fL MCH (27.0-34.0) pg MCHC (32.0-36.0) % RDW (11.6-17.2) % Plt Count (150-450) th/mm3 MPV (7.0-11.0) fL Neut % (Auto) (16.0-70.0) % Lymph % (Auto) (9.0-44.0) % [place] % (Auto) (0.0-8.0) % Eos % (Auto) (0.0-4.0) % Baso % (Auto) (0.0-2.0) % Neut # (Auto) (1.8-7.7) th/mm3 Lymph # (Auto) (1.0-4.8) th/mm3 [place] # (Auto) (0.0-0.9) th/mm3 Eos # (Auto) (0.0-0.4) th/mm3 Baso # (Auto) (0.0-0.2) th/mm3 WBC Differential Differential Comment ESR (0-30) mm/hr PT 12.0 H (9.8-11.6) sec INR 1.2 Ratio APTT 35.4 H (24.3-30.1) sec Sodium 138 (136-145) meq/L Potassium 3.1 L (3.5-5.1) meq/L Chloride 99 (98-107) meq/L Carbon Dioxide 33.3 H (21.0-32.0) meq/L Anion Gap 6 (5-15) meq/L BUN 12 (7-18) mg/dL Creatinine 0.87 (0.50-1.00) mg/dL Estimated GFR 61 L (>89) mL/min Random Glucose 124 H (74-106) mg/dL Lactic Acid (0.4-2.0) mmol/L Calcium 8.9 (8.5-10.1) mg/dL Total Bilirubin 0.4 (0.2-1.0) mg/dL AST 11 L (15-37) U/L ALT 12 (10-53) U/L Alkaline Phosphatase 96 (45-117) U/L C-Reactive Protein 11.40 H (0.00-0.30) mg/dL Total Protein 6.8 (6.4-8.2) g/dL Albumin 2.9 L (3.4-5.0) g/dL Imaging Data Attestation: I personally reviewed and interpreted this imaging study as follows : Radiologist's impression: Hip CT 05/07/18 14:31 CONCLUSION: 1. Induration in the right lateral pelvic and upper thigh subcutaneous fat. There is also skin thickening. There is a elongated fluid collection seen in the subcutaneous fat measuring up to 11 cm in length represent hematoma, seroma , or abscess. Discharge Plan Discharge Disposition Patient Disposition: 30 Still Patient Discharge Details Diagnosis: Infection of right prosthetic hip joint Physicians Team ED Provider: Rodrigo Camara ED Midlevel Provider: Willy Gunn Primary Care Provider: Ashley Almanzar Attending Provider: Beckie Arvizu Discharge Interventions Interventions: Vital Signs Last Done: 05/07/18 14:40 Status ED Status: Admitted Patient
[2018-05-07 15:31] LABS: Baso # (Auto) 0.1 th/mm3 (0.0-0.2); Baso % (Auto) 0.8 % (0.0-2.0); Eos # (Auto) 0.2 th/mm3 (0.0-0.4); Eos % (Auto) 1.9 % (0.0-4.0); Hematocrit 40.8 % (35.0-46.0); Hemoglobin 13.6 gm/dL (11.6-15.3); Lymph # (Auto) 2.1 th/mm3 (1.0-4.8); Lymph % (Auto) 25.2 % (9.0-44.0); Mean Corpuscular HGB Conc 33.4 % (32.0-36.0); Mean Corpuscular Hemoglobin 31.3 pg (27.0-34.0); Mean Corpuscular Volume 93.5 fL (80.0-100.0); Mean Platelet Volume 8.8 fL (7.0-11.0); Mono # (Auto) 0.5 th/mm3 (0.0-0.9); Mono % (Auto) 6.6 % (0.0-8.0); Neut # (Auto) 5.4 th/mm3 (1.8-7.7); Neut % (Auto) 65.5 % (16.0-70.0); Platelet Count 450 th/mm3 (150-450); Red Blood Count 4.36 mil/mm3 (4.00-5.30); Red Cell Distribution Width 15.3 % (11.6-17.2); White Blood Count 8.2 th/mm3 (4.0-11.0)
[2018-05-07] MEDS ORDERED: Sodium Chlor 0.9% Inj 250 ML IV.SIG ONE (16:07)
[2018-05-07 17:03] LABS: Activated Partial Thrombo Time 35.4 sec (24.3-30.1); INR 1.2 Ratio
[2018-05-07 17:23] LABS: Alanine Aminotransferase 12 U/L (10-53); Albumin 2.9 g/dL (3.4-5.0); Anion Gap 6 meq/L (5-15); Aspartate Aminotransferase 11 U/L (15-37); Blood Urea Nitrogen 12 mg/dL (7-18); Calcium 8.9 mg/dL (8.5-10.1); Carbon Dioxide 33.3 meq/L (21.0-32.0); Chloride 99 meq/L (98-107); Glomerular Filtration Rate 61 mL/min (>89); Glucose,Random 124 mg/dL (74-106); Potassium 3.1 meq/L (3.5-5.1); Sodium 138 meq/L (136-145)
[2018-05-07 17:26] LABS: Alkaline Phosphatase 96 U/L (45-117); Total Protein 6.8 g/dL (6.4-8.2)
[2018-05-07] MEDS ORDERED: Bisacodyl 10 MG Supp RECTAL PRN (18:49)
--- NOTE | 2018-05-07 18:49 | CT ---
EXAM DATE: 05/07/2018 6:38 PM EDT AGE/SEX: 87 years / Female INDICATIONS: Right hip pain for four days. CLINICAL DATA: This is the patient's initial encounter. Patient reports that signs and symptoms have been present for 1 day and indicates a pain score of 7/10. MEDICAL/SURGICAL HISTORY: Congestive heart failure. Hypertension. Pacemaker. knee replacement, rig ht hip replacement RADIATION DOSE: 20.14 CTDI (mGy) ; Patient positioning COMPARISON: [facility], HIP RIGHT (AP&LAT 2/3VWS) WO AP PELVIS, 02/22/2018. . TECHNIQUE: Multiple contiguous axial images were acquired using a multirow detector CT scanner withou t contrast and after intravenous administration of 96 ml Omnipaque 350 (iohexol) nonionic water-solu ble contrast as a single exam dose. Multiplanar reconstruction was performed in the sagittal and cor onal planes. Using automated exposure control and adjustment of the mA and/or kV according to patien t size, radiation dose was kept as low as reasonably achievable to obtain optimal diagnostic quality images. DICOM format image data is available electronically for review and comparison. FINDINGS: Bones: There are bilateral hip prostheses in place. Bony structures are intact. There appears to be a defect in the lateral cortex at the proximal right femur. This is seen on the prior plain film exam ination. There is degenerative change in the lower lumbar spine. Joints: Bilateral hip prostheses are present. Soft Tissues: There is soft tissue swelling seen along the lateral right lateral pelvis and upper th igh region. There does appear to be elongated fluid collection seen in the subcutaneous fat measuring approximately 3.2 x 1.1 cm and extending over at least 11 cm in length. There is induration the surr ounding fat. Other: Vascular calcification are seen. There is streak artifact from the hip prostheses in the pelv is. Post Contrast: There is enhancement at the periphery of the above-described fluid collection. CONCLUSION: 1. Induration in the right lateral pelvic and upper thigh subcutaneous fat. There is also skin thick ening. There is a elongated fluid collection seen in the subcutaneous fat measuring up to 11 cm in le ngth represent hematoma, seroma, or abscess. Electronically signed by: Eduard Serna MD 05/07/2018 6:48 PM EDT
[2018-05-07] MEDS ORDERED: Morphine Inj 4 MG/ML Vial IV.PUSH ONE (19:02)
[2018-05-07] MEDS ORDERED: Morphine Inj 4 MG/ML Vial IV.PUSH PRN (20:57)
[2018-05-07] MEDS ORDERED: Vancomycin Consult Pharmacy 1 EACH OTHER SCH (21:00)
--- NOTE | 2018-05-07 21:03 | P.HP ---
History of Present Illness Service: [facility] Primary Care Physician: sAhley Almanzar History of Present Illness: 87-year-old female with a past medical history significant for atrial fibrillation anticoagulated on Xarelto, congestive heart failure, history of previous DVT and hypertension presents to the emergency department for evaluation of a right hip infection. The patient is status post right hip replacement on 02/22/[address] Galindo. She went to rehab until 04/29/18 when she went home. She is still not weightbearing on her right lower extremity. On Monday she noticed redness surrounding the right hip. This continued to worsen until today when she noticed drainage coming from the area. She went to Dr. Galindo's office who took a wound culture and sent the patient to the hospital for further evaluation. She denies any fever/chills. No chest pain or shortness of breath. No abdominal pain. No nausea/vomiting/diarrhea. No lateralizing signs/symptoms. Inpatient Certification: I certify that the inpatient services were ordered in accordance with Medicare regulations governing the order. This includes certification that hospital inpatient services are reasonable and necessary and in the case of services not specified as inpatient-only under 42 CFR 419.22(n), that they are appropriately provided as inpatient services in accordance to with the 2-midnight benchmark under 43 CFR 412.3(e) Estimated Total Length of Stay (Days): 3 Plans for Post Hospital Care: Not yet determined Review of Systems All other systems reviewed negative except as stated in HPI [facility] - History History Provided By: Patient - Medical History Medical History: Medical History (Last Updated 05/07/18 @ 20:54 by Pamela Ocampo MD) A-fib CHF (congestive heart failure) FH: total knee replacement H/O thyroidectomy H/O: hysterectomy Hip replacement planned Hypertension Pacemaker - Surgical History Surgical History: Surgical History (Last Updated 05/07/18 @ 20:54 by Pamela Ocampo MD) H/O bilateral hip replacements History of knee replacement Hx of tonsillectomy - Family History Family History: Family History (Last Updated 05/07/18 @ 20:54 by Pamela Ocampo MD) Other Diabetes mellitus - Tobacco History Second Hand Smoke Exposure: No Smoking Status: Never smoker - Alcohol History How Often Do You Have a Drink Containing Alcohol: 2 to 3 times a week - Substance Use History Substance History: No History of Abuse - Travel History Recent Travel in the [place] Within the Last 8 Weeks: No Recent Travel Out of the Country Within the Last 8 Weeks: No - Immunization History Tetanus Immunization: <5 Years Hx Influenza Vaccine This Season: Yes Medications and Allergies Active Medications: Active Medications Acetaminophen (Tylenol) 650 mg PO Q4H PRN PRN Reason: Temp > 100.4 Al Hydroxide/Mg Hydroxide (Milk Of Magnesia Liq) 30 ml PO Q12H PRN PRN Reason: Mild Constipation Bisacodyl (Dulcolax Supp) 10 mg RECTAL DAILY PRN PRN Reason: SEVERE CONSITIPATION Bumetanide (Bumex) 1 mg PO DAILY PATRICE Isosorbide Mononitrate (Ismo) 10 mg PO BID@0700,1400 PATRICE Lactulose (Lactulose Liq) 30 ml PO DAILY PRN PRN Reason: SEVERE CONSITIPATION Levothyroxine Sodium (Synthroid) 125 mcg PO DAILY@0600 PATRICE Metoprolol Tartrate (Lopressor) 100 mg PO BID PATRICE Miscellaneous (Pill Splitter) 1 each OTHER UNSCH PRN PRN Reason: SEE LABEL COMMENTS Ondansetron HCl (Zofran Odt) 4 mg PO Q6H PRN PRN Reason: NAUSEA OR VOMITING Senna/Docusate Sodium (Reny-Colace) 1 tab PO BID PATRICE Sennosides (Senokot) 17.2 mg PO Q12H PRN PRN Reason: Moderate Constipation Allergies Allergy/AdvReac Type Severity Reaction Status Date / Time penicillin G Allergy Unknown Rash Verified 05/07/18 15:22 Home Medications Medication Instructions Recorded Confirmed Type allopurinol 100 mg PO DAILY 05/07/18 05/07/18 History bumetanide 1 mg PO DAILY 05/07/18 05/07/18 History cholecalciferol (vitamin D3) 5,000 unit PO DAILY 05/07/18 05/07/18 History [Vitamin D3] ferrous sulfate 325 mg PO DAILY 05/07/18 05/07/18 History hydrocodone-acetaminophen 1 tab PO Q6H PRN 05/07/18 05/07/18 History isosorbide mononitrate 10 mg PO BID 05/07/18 05/07/18 History levothyroxine 125 mcg PO DAILY 05/07/18 05/07/18 History melatonin 3 mg PO HS PRN 05/07/18 05/07/18 History metoprolol tartrate 100 mg PO BID 05/07/18 05/07/18 History oxybutynin chloride 5 mg PO DAILY 05/07/18 05/07/18 History potassium chloride 20 meq PO DAILY 05/07/18 05/07/18 History rivaroxaban [Xarelto] 20 mg PO DAILY 05/07/18 05/07/18 History sodium chloride 2 tab PO DAILY 05/07/18 05/07/18 History Exam Vital signs: Vital Signs 05/07/18 13:42 05/07/18 14:40 05/07/18 19:16 Temperature 97.7 F Pulse Rate 70 62 83 Respiratory Rate 18 18 18 Blood Pressure 122/61 113/57 L 156/67 H Pulse Oximetry 94 L 97 98 Intake & Output 05/07/18 05/07/18 05/08/18 06:59 18:59 06:59 Intake Total 500 / 500 Balance 500 / 500 Weight 80.739 kg Intake: IV 500 / 500 NS Inj 250 ML @ Wide Open IV. 250 / 250 SIG BOLUS ONE Rx#:[id number] Vancomycin Inj 1,000 MG In NS 250 / 250 Inj 250 ML @ 200 mls/hr IV.SIG ONCE ONE Rx#:[id number] Narrative: Gen.: No acute distress Head: Normocephalic. Atraumatic. EENT: Pupils equal round and reactive to light. Nose without drainage. Airway intact. Throat without injection. Cardiovascular: Regular rate and rhythm. No murmurs, rubs or gallops. Respiratory: Lungs clear to auscultation bilaterally. No wheezes or rhonchi. Abdomen: Soft, nontender, nondistended. No peritoneal signs. Musculoskeletal: No gross deformities. No edema. Skin: Erythema surrounding right hip with serosanguineous drainage. Neuro: Sensory and motor grossly intact. Cranial nerves II through XII grossly intact. Psych: Appropriate mood and affect Results - Labs CBC & Chem 7: 05/07/18 14:40 05/07/18 16:00 Labs: Laboratory Results - last 24 hr 05/07/18 05/07/18 05/07/18 14:40 14:40 14:40 WBC 8.2 RBC 4.36 Hgb 13.6 Hct 40.8 MCV 93.5 MCH 31.3 MCHC 33.4 RDW 15.3 Plt Count 450 MPV 8.8 Neut % (Auto) 65.5 Lymph % (Auto) 25.2 [place] % (Auto) 6.6 Eos % (Auto) 1.9 Baso % (Auto) 0.8 Neut # (Auto) 5.4 Lymph # (Auto) 2.1 [place] # (Auto) 0.5 Eos # (Auto) 0.2 Baso # (Auto) 0.1 WBC Differential . Differential Comment Auto diff final ESR 58 H PT INR APTT Sodium Potassium Chloride Carbon Dioxide Anion Gap BUN Creatinine Estimated GFR Random Glucose Lactic Acid 2.5 H Calcium Total Bilirubin AST ALT Alkaline Phosphatase C-Reactive Protein Total Protein Albumin 05/07/18 05/07/18 16:00 16:00 WBC RBC Hgb Hct MCV MCH MCHC RDW Plt Count MPV Neut % (Auto) Lymph % (Auto) [place] % (Auto) Eos % (Auto) Baso % (Auto) Neut # (Auto) Lymph # (Auto) [place] # (Auto) Eos # (Auto) Baso # (Auto) WBC Differential Differential Comment ESR PT 12.0 H INR 1.2 APTT 35.4 H Sodium 138 Potassium 3.1 L Chloride 99 Carbon Dioxide 33.3 H Anion Gap 6 BUN 12 Creatinine 0.87 Estimated GFR 61 L Random Glucose 124 H Lactic Acid Calcium 8.9 Total Bilirubin 0.4 AST 11 L ALT 12 Alkaline Phosphatase 96 C-Reactive Protein 11.40 H Total Protein 6.8 Albumin 2.9 L - Imaging Impressions Hip CT 05/07/18 14:31 CONCLUSION: 1. Induration in the right lateral pelvic and upper thigh subcutaneous fat. There is also skin thickening. There is a elongated fluid collection seen in the subcutaneous fat measuring up to 11 cm in length represent hematoma, seroma , or abscess. Caprini VTE Risk Assessment Caprini VTE Risk Assessment: Moderate/High Risk (score >= 2) Caprini Risk Assessment Model: Point Value = 1 Point Value = 2 Point Value = 3 Point Value = 5 Age 41-60 Minor surgery BMI > 25 kg/m2 Swollen legs Varicose veins or History of unexplained or recurrent spontaneous Oral contraceptives or hormone replacement Sepsis (< 1 month) Serious lung disease, including pneumonia (< 1 month) Abnormal pulmonary function Acute myocardial infarction Congestive heart failure (< 1 month) History of inflammatory bowel disease Medical patient at bed rest Age 61-74 Arthroscopic surgery Major open surgery (> 45 min) Laparoscopic surgery (> 45 min) Malignancy Confined to bed (> 72 hours) Immobilizing plaster cast Central venous access Age >= 75 History of VTE Family history of VTE Factor V Leiden Prothrombin [id number] Lupus anticoagulant Anticardiolipin antibodies Elevated serum homocysteine Heparin-induced thrombocytopenia Other congenital or acquired thrombophilia Stroke (< 1 month) Elective arthroplasty Hip, pelvis, or leg fracture Acute spinal cord injury (< 1 month) Prophylaxis Regimen: Total Risk Factor Score Risk Level Prophylaxis Regimen 0-1 Low Early ambulation 2 Moderate Order ONE of the following: *Sequential Compression Device (SCD) *Heparin 5000 units SQ BID 3-4 Higher Order ONE of the following medications: *Heparin 5000 units SQ TID *Enoxaparin/Lovenox 40 mg SQ daily (WT < 150 kg, CrCl > 30 mL/min) *Enoxaparin/Lovenox 30 mg SQ daily (WT < 150 kg, CrCl > 10-29 mL/min) *Enoxaparin/Lovenox 30 mg SQ BID (WT < 150 kg, CrCl > 30 mL/min) AND/OR *Sequential Compression Device (SCD) 5 or more Highest Order ONE of the following medications: *Heparin 5000 units SQ TID (Preferred with Epidurals) *Enoxaparin/Lovenox 40 mg SQ daily (WT < 150 kg, CrCl > 30 mL/min) *Enoxaparin/Lovenox 30 mg SQ daily (WT < 150 kg, CrCl > 10-29 mL/min) *Enoxaparin/Lovenox 30 mg SQ BID (WT < 150 kg, CrCl > 30 mL/min) AND *Sequential Compression Device (SCD) Assessment and Plan - Plan Assessment/plan: 1. Right hip infection status post hip replacement CT of the hip significant for induration in the right lateral pelvic and upper thigh subcutaneous fat with elongated fluid collection concerning for hematoma, seroma or abscess Vancomycin Orthopedic surgery, Dr. Galindo consulted, appreciate assistance Morphine for pain 2. Hypertension Continue home medications 3. Hypothyroidism Continue home Synthroid 4. CHF/A. fib Continue home metoprolol Holding home Xarelto for possible operative intervention Continue home Bumex 5. History of DVT Holding Xarelto as above FEN N.p.o. Electrolytes: Hypokalemia -status post p.o. repletion, monitor BMP NS at 70 cc/hour Holding pharmacologic anticoagulation for possible operative intervention
[2018-05-07] MEDS: Metoprolol Tartrate 100 MG Tablet PO SCH (23:27)
[2018-05-07] MEDS: Senna/Docusate Sodium 8.6/50 MG Tablet PO SCH (23:27)
[2018-05-07] MEDS: Isosorbide Mononitrate 20 MG Tablet PO SCH (23:27)
[2018-05-07] MEDS: Sod Chloride 0.9% Inj 1,000 ML IV.CONT SCH (23:28)
[2018-05-08] MEDS: Levothyroxine 125 MCG Tablet PO SCH (05:07)
[2018-05-08] MEDS: Isosorbide Mononitrate 20 MG Tablet PO SCH ×2 (06:57→15:07)
[2018-05-08] MEDS: Metoprolol Tartrate 100 MG Tablet PO SCH ×2 (08:04→20:54)
[2018-05-08] MEDS: Senna/Docusate Sodium 8.6/50 MG Tablet PO SCH ×2 (08:04→20:54)
[2018-05-08] MEDS ORDERED: Metoprolol Tartrate 25 MG Tablet PO SCH (09:15)
[2018-05-08] MEDS ORDERED: Chlorhexidine Gluconate 2% 1 Pack (2 Cloths) TOPICAL SCH (09:15)
--- NOTE | 2018-05-08 09:45 | ECG ---
Date Performed: 05/08/2018 Time Performed: 09:19:12 PTAGE: 87 years EKG: ELECTRONIC ATRIAL PACEMAKER ELECTRONIC VENTRICULAR PACEMAKER ABNORMAL RHYTHM ECG PREVIOUS TRACING : 02/23/2016 18.26 DOCTOR: Jose Obrien Interpretating Date/Time 05/08/2018 09:44:44
[2018-05-08] MEDS ORDERED: Bisacodyl 10 MG Supp RECTAL PRN (09:55)
[2018-05-08] MEDS ORDERED: Post-op Orders (for Pharmacy) OTHER STA (09:55)
[2018-05-08] MEDS ORDERED: Morphine Inj 4 MG/ML Vial IV.PUSH PRN (09:55)
[2018-05-08] MEDS ORDERED: oxyCODONE/Acetaminophen 10/325 Tablet PO PRN (09:55)
[2018-05-08] MEDS ORDERED: Sodium Chlor 0.9% Inj 500 ML IV.SIG SCH (10:00)
--- NOTE | 2018-05-08 11:12 | P.PNOP ---
Subjective Interval history: This patient is an 87-year-old female who is an established patient of the [facility]. Over 20 years ago she came to total hip replacement and did well until 2 months ago when she broke the femoral stem. [facility] and had an unremarkable postoperative course. Approximate 5 days ago she bumped this on something and noticed some swelling. [facility] and then again yesterday. She started with mild spontaneous drainage. She had a mildly elevated sed rate of 36 and a mildly elevated C-reactive protein with a normal white blood cell count. She was admitted to the hospital. A CT scan showed a fluid collection underneath the skin but no clear evidence of a communication deep. She has been seen by the medical service and started on antibiotics. Culture was taken yesterday when she was in the office. Based on the findings, she is felt to be a candidate for exploration of her right hip joint Physical Exam Vital signs: Vital Signs 05/07/18 13:42 05/07/18 14:40 05/07/18 19:16 Temperature 97.7 F Pulse Rate 70 62 83 Respiratory Rate 18 18 18 Blood Pressure 122/61 113/57 L 156/67 H Pulse Oximetry 94 L 97 98 05/07/18 20:00 05/08/18 00:00 05/08/18 08:00 Temperature 98.0 F 97.8 F 97.8 F Pulse Rate 79 77 63 Respiratory Rate 18 18 17 Blood Pressure 126/86 131/67 131/73 Pulse Oximetry 92 L 92 L 95 Intake & Output 05/07/18 05/08/18 05/08/18 18:59 06:59 18:59 Intake Total 500 / 500 Balance 500 / 500 Weight 80.739 kg Intake: IV 500 / 500 NS Inj 250 ML @ Wide Open IV. 250 / 250 SIG BOLUS ONE Rx#:[id number] Vancomycin Inj 1,000 MG In NS 250 / 250 Inj 250 ML @ 200 mls/hr IV.SIG ONCE ONE Rx#:[id number] Other: # Voids 2 Narrative: This patient is comfortable lying in bed. She is not toxic looking. Right hip shows redness around the incision with mild drainage. Range of motion hip is nonpainful. Neurologic examination is normal Results - Labs CBC & Chem 7: 05/07/18 14:40 05/07/18 16:00 Laboratory Results - last 24 hr 05/07/18 05/07/18 05/07/18 14:40 14:40 14:40 WBC 8.2 RBC 4.36 Hgb 13.6 Hct 40.8 MCV 93.5 MCH 31.3 MCHC 33.4 RDW 15.3 Plt Count 450 MPV 8.8 Neut % (Auto) 65.5 Lymph % (Auto) 25.2 [place] % (Auto) 6.6 Eos % (Auto) 1.9 Baso % (Auto) 0.8 Neut # (Auto) 5.4 Lymph # (Auto) 2.1 [place] # (Auto) 0.5 Eos # (Auto) 0.2 Baso # (Auto) 0.1 WBC Differential . Differential Comment Auto diff final ESR 58 H PT INR APTT Sodium Potassium Chloride Carbon Dioxide Anion Gap BUN Creatinine Estimated GFR Random Glucose Lactic Acid 2.5 H Calcium Total Bilirubin AST ALT Alkaline Phosphatase C-Reactive Protein Total Protein Albumin 05/07/18 05/07/18 05/07/18 16:00 16:00 20:06 WBC RBC Hgb Hct MCV MCH MCHC RDW Plt Count MPV Neut % (Auto) Lymph % (Auto) [place] % (Auto) Eos % (Auto) Baso % (Auto) Neut # (Auto) Lymph # (Auto) [place] # (Auto) Eos # (Auto) Baso # (Auto) WBC Differential Differential Comment ESR PT 12.0 H INR 1.2 APTT 35.4 H Sodium 138 Potassium 3.1 L Chloride 99 Carbon Dioxide 33.3 H Anion Gap 6 BUN 12 Creatinine 0.87 Estimated GFR 61 L Random Glucose 124 H Lactic Acid 1.8 Calcium 8.9 Total Bilirubin 0.4 AST 11 L ALT 12 Alkaline Phosphatase 96 C-Reactive Protein 11.40 H Total Protein 6.8 Albumin 2.9 L Microbiology 05/07/18 14:40 Blood - Peripheral Aerobic Blood Culture - Preliminary No growth in 1 day 05/07/18 14:40 Blood - Peripheral Anaerobic Blood Culture - Preliminary No growth in 1 day 05/07/18 14:40 Blood - Peripheral Aerobic Blood Culture - Preliminary No growth in 1 day 05/07/18 14:40 Blood - Peripheral Anaerobic Blood Culture - Preliminary No growth in 1 day 05/07/18 16:00 Abscess - Leg Gram Stain - Final - Imaging Impressions Hip CT 05/07/18 14:31 CONCLUSION: 1. Induration in the right lateral pelvic and upper thigh subcutaneous fat. There is also skin thickening. There is a elongated fluid collection seen in the subcutaneous fat measuring up to 11 cm in length represent hematoma, seroma , or abscess. Assessment and Plan - Assessment and Plan Status post revision right total hip replacement arthroplasty. Status post proximal femoral osteotomy. Infection of the incision of the right total hip. PLAN: Irrigation and debridement of skin subcu tissue and muscle of the right hip, possible removal of previous prosthesis and placement of an antibiotic spacer. Consent: There are risks with surgery including persistent infection, bleeding, loss of motion, need for further surgery, neurologic or vascular injury. The patient understands these issues and wishes to proceed forward with surgery as outlined above
--- NOTE | 2018-05-08 11:19 | P.OP ---
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 Placement of extended very large wound VAC, greater than 25 cm Anesthesia: TOMA Surgeon: Carlton Galindo MD [employer] Reconditioning Inspector: Linn Mack PA-C Operation and Findings: EBL: 200 cc INDICATION: This patient is an 87-year-old female who came to revision total hip for a broken stem approximately 2 and almost 3 months ago. She has done well until the last week when she developed swelling along the incision. Study showed evidence of fluid collection under the skin this developing spontaneous drainage. She presents for exploration of the right hip with irrigation and debridement. NOTE: Linn Mack PA-C was present for the entire surgical procedure as my technical administrative assistant. In my medical opinion her skill and care was necessary for the proper management of this patient. PROCEDURE: This patient was brought to the operating room and anesthetized in the supine position and positioned on the routine table in the clean air suite. The patient was then rolled to a right side up lateral position and held with a Biomet hip positioner. The hip and leg was scrubbed with alcohol followed by Hibiclens followed by chloro prep and draped sterilely. A timeout was done. The previous incision was excised. A fluid collection was found. Deep tissue was taken and sent for tissue culture. The infection extended down to the fascia but not through the fascia. There was granulation tissue along this region. A complete capsulectomy was accomplished. This was debrided sharply and then irrigated copiously with antibiotic irrigation. The wound appeared clean at the end of the procedure. A very large wound VAC was placed over this region measuring over 25 cm long and approximately 12 cm wide. This was then attached to a wound VAC suction device. The patient was awakened and taken to the recovery room in satisfactory condition FINDINGS: There appear to be very large infection that went down to but not through the fascia. This was debrided sharply. There is no complication that was appreciated.
[2018-05-08] MEDS ORDERED: *morphine SULFATE 4 MG/ML PERIprocedure ONLY ONE ×3 (11:47→12:09)
[2018-05-08] MEDS ORDERED: fentaNYL Citrate Inj 100 MCG/2 ML Ampul ONE (11:57)
[2018-05-08] MEDS ORDERED: Morphine Inj 4 MG/ML Vial ONE (12:00)
[2018-05-08] MEDS ORDERED: HYDROmorphone PF Inj 2 MG/ML Vial ONE (12:17)
--- NOTE | 2018-05-08 15:06 | XR ---
EXAM DATE: 05/08/2018 2:56 PM EDT AGE/SEX: 87 years / Female INDICATIONS: Post-op right hip. No complaints. CLINICAL DATA: This is the patient's initial encounter. Patient reports that signs and symptoms have been present for 1 day and indicates a pain score of 2/10. MEDICAL/SURGICAL HISTORY: Hypertension. . Left hip surgery. COMPARISON: [facility], HIP RIGHT (AP&LAT 2/3VWS) WO AP PELVIS, 02/22/2018. . FINDINGS: Multiple views of the right hip were obtained including an AP view of the pelvis and demonstrates jackson t the patient is status post bilateral hip arthroplasty. The arthroplasty components are intact and i n normal alignment. Surgical drain is projected over the right hip. There is soft tissue swelling in this region. CONCLUSION: Expected postoperative changes status post right hip arthroplasty. Electronically signed by: Mark Sanchez MD 05/08/2018 3:05 PM EDT
--- NOTE | 2018-05-08 15:12 | P.PNIM ---
Subjective Interval history: Mr. Brady was afebrile with stable vital signs. She was seen post-operatively in the company of her daughter. Patient feels confused from anesthesia. She is not in pain at this time. Patient does not report shortness of breath. She has urinary catheter in place. patient reports anaphylaxis to PCN previously. Home medications reviewed Physical Exam Vital signs: Vital Signs 05/07/18 19:16 05/07/18 20:00 05/08/18 00:00 Temperature 98.0 F 97.8 F Pulse Rate 83 79 77 Respiratory Rate 18 18 Blood Pressure 156/67 H 126/86 131/67 Pulse Oximetry 98 92 L 92 L 05/08/18 08:00 05/08/18 11:35 05/08/18 11:45 Temperature 97.8 F 96.1 F L Pulse Rate 63 95 H 87 Respiratory Rate 17 20 20 Blood Pressure 131/73 158/86 H 153/71 H Pulse Oximetry 95 05/08/18 12:00 05/08/18 12:15 05/08/18 12:30 Temperature Pulse Rate 85 95 H 86 Respiratory Rate 20 20 20 Blood Pressure 160/83 H 176/80 H 152/81 H Pulse Oximetry 05/08/18 13:00 Temperature 97.5 F L Pulse Rate 74 Respiratory Rate 20 Blood Pressure 149/67 H Pulse Oximetry Intake & Output 05/07/18 05/08/18 05/08/18 18:59 06:59 18:59 Intake Total 500 / 500 Balance 500 / 500 Weight 80.739 kg Intake: IV 500 / 500 NS Inj 250 ML @ Wide Open IV. 250 / 250 SIG BOLUS ONE Rx#:[id number] Vancomycin Inj 1,000 MG In NS 250 / 250 Inj 250 ML @ 200 mls/hr IV.SIG ONCE ONE Rx#:[id number] Other: Mode Setting Right Hip Continuous # Voids 2 Narrative: Gen.: No acute distress Head: Normocephalic Skin: R hip wound vac in place; otherwise unremarkable EENT: EOM grossly intact. Cardiovascular: Regular rate and rhythm without murmurs. Normal peripheral perfusion Respiratory: CTAB; normal rate Abdomen: Soft, nontender, nondistended Musculoskeletal: Grossly normal ROM and motor function of upper extremities. Bilateral calves symmetrical Neuro: Cranial nerves grossly intact. Grossly normal peripheral sensory/motor function Psych: Appropriate mood and affect - Urinary Catheter Management Indwelling Urethral Catheter Cath placed during this visit: no Reason for continuing: Other continuation reason Results - Labs CBC & Chem 7: 05/07/18 14:40 05/07/18 16:00 Laboratory Results - last 24 hr 05/07/18 05/07/18 05/07/18 14:40 14:40 14:40 WBC 8.2 RBC 4.36 Hgb 13.6 Hct 40.8 MCV 93.5 MCH 31.3 MCHC 33.4 RDW 15.3 Plt Count 450 MPV 8.8 Neut % (Auto) 65.5 Lymph % (Auto) 25.2 [place] % (Auto) 6.6 Eos % (Auto) 1.9 Baso % (Auto) 0.8 Neut # (Auto) 5.4 Lymph # (Auto) 2.1 [place] # (Auto) 0.5 Eos # (Auto) 0.2 Baso # (Auto) 0.1 WBC Differential . Differential Comment Auto diff final ESR 58 H PT INR APTT Sodium Potassium Chloride Carbon Dioxide Anion Gap BUN Creatinine Estimated GFR Random Glucose Lactic Acid 2.5 H Calcium Total Bilirubin AST ALT Alkaline Phosphatase C-Reactive Protein Total Protein Albumin 05/07/18 05/07/18 05/07/18 16:00 16:00 20:06 WBC RBC Hgb Hct MCV MCH MCHC RDW Plt Count MPV Neut % (Auto) Lymph % (Auto) [place] % (Auto) Eos % (Auto) Baso % (Auto) Neut # (Auto) Lymph # (Auto) [place] # (Auto) Eos # (Auto) Baso # (Auto) WBC Differential Differential Comment ESR PT 12.0 H INR 1.2 APTT 35.4 H Sodium 138 Potassium 3.1 L Chloride 99 Carbon Dioxide 33.3 H Anion Gap 6 BUN 12 Creatinine 0.87 Estimated GFR 61 L Random Glucose 124 H Lactic Acid 1.8 Calcium 8.9 Total Bilirubin 0.4 AST 11 L ALT 12 Alkaline Phosphatase 96 C-Reactive Protein 11.40 H Total Protein 6.8 Albumin 2.9 L Microbiology 05/07/18 16:00 Abscess - Leg Gram Stain - Final 05/07/18 16:00 Abscess - Leg Wound Culture - Preliminary gram negative rods 05/07/18 14:40 Blood - Peripheral Aerobic Blood Culture - Preliminary No growth in 1 day 05/07/18 14:40 Blood - Peripheral Anaerobic Blood Culture - Preliminary No growth in 1 day 05/07/18 14:40 Blood - Peripheral Aerobic Blood Culture - Preliminary No growth in 1 day 05/07/18 14:40 Blood - Peripheral Anaerobic Blood Culture - Preliminary No growth in 1 day - Imaging Impressions Hip CT 05/07/18 14:31 CONCLUSION: 1. Induration in the right lateral pelvic and upper thigh subcutaneous fat. There is also skin thickening. There is a elongated fluid collection seen in the subcutaneous fat measuring up to 11 cm in length represent hematoma, seroma , or abscess. Hip X-Ray 05/08/18 00:00 CONCLUSION: Expected postoperative changes status post right hip arthroplasty. Assessment and Plan - Assessment (1) Wound infection after surgery Code(s): T81.4XXA - Infection following a procedure, initial encounter Status : Acute (2) Atrial fibrillation Code(s): I48.91 - Unspecified atrial fibrillation Status: Chronic (3) CHF (congestive heart failure) Code(s): I50.9 - Heart failure, unspecified Status: Chronic (4) HTN (hypertension) Code(s): I10 - Essential (primary) hypertension Status: Chronic (5) History of pacemaker Code(s): Z95.0 - Presence of cardiac pacemaker Status: Chronic - Plan Mrs. Brady is a 87 yo F with PMH/PSH prior hip replacement, atrial fibrillation , prior DVT, HTN R hip fluid collection Impression: PSH of revision of distant prior R total hip replacement 02/[address] Galindo due to broken femoral stem. 5 days prior had swelling after bumping leg; found to have spontaneous drainage. Outpatient labs- culture obtained- elevated ESR- 36. CT- induration R lateral pelvic/upper thigh SQ fat. Also, skin thickening. Elongated fluid collection up to 11 cm in length Labs: ESR 58. No leukocytosis. Cr 2.5 on admission-> 1.8 05/07 Cultures: Blood negative x1 day -Leg wound- gram negative rods, pending -Orthopedic surgery consulted -debridement/irrigation performed today with irrigation of skin subcutaneous tissue and muscle/fascia. Infection extended to fascia but not through it. Large wound vac placed. -Antibiotic coverage -Continue vancomycin -Will start Aztreonam for gram negative coverage due to PCN anaphylaxis previously -Will consider ID consult due to ESR elevation -Continue NS at 70 ml/hr -Pain control -Percocet pain scale, morphine for break through pain Cardiovascular History of atrial fibrillation Impression: Currently rate controlled -Will continue rate control with Metoprolol -Will continue Xarelto >24hrs post-op CHF Impression: Per EMR. 06/2017 EF 60-65%; unclear whether was prior overload from uncontrolled afib? -Continue home Bumetanide HTN Impression: Controlled currently -Continue home Metoprolol, Isosorbide Other chronic conditions -Will continue home Allopurinol, Oxybutynin Hyponatremia -mild (K 3.1 05/07); s/p replacement orally DVT PPX -Will plan to restart Xarelto >24hrs post-op Code Status: Full code
[2018-05-08] MEDS: oxyCODONE/Acetaminophen 10/325 Tablet PO PRN ×2 (15:22→20:44)
[2018-05-08] MEDS ORDERED: Vancomycin Inj 1,000 MG in Sodium Chlor 0.9% Inj 250 ML IV.SIG SCH (16:00)
[2018-05-08] MEDS: Sod Chloride 0.9% Inj 1,000 ML IV.CONT SCH (16:57)
[2018-05-08] MEDS ORDERED: Succinylcholine Inj 100 MG/5 ML Syringe IV.PUSH ONE (18:53)
[2018-05-08] MEDS ORDERED: Lidocaine PF 1% Inj 5 ML Syringe INFILTRATN ONE (18:53)
[2018-05-08] MEDS ORDERED: Phenylephrine/NS 1000 MCG/10ML Syringe IV.PUSH ONE (18:53)
[2018-05-08] MEDS: Multivitamin/Minerals Therapeutic Tablet PO SCH (20:54)
[2018-05-08] MEDS ORDERED: Temazepam 15 MG Capsule PO PRN (21:00)
[2018-05-08 23:35] LABS: Hematocrit 32.4 % (35.0-46.0); Hemoglobin 10.7 gm/dL (11.6-15.3); Lymph # (Auto) 0.5 th/mm3 (1.0-4.8); Lymph % (Auto) 7.9 % (9.0-44.0); Mean Corpuscular Hemoglobin 30.8 pg (27.0-34.0); Mean Corpuscular Volume 93.3 fL (80.0-100.0); Mean Platelet Volume 8.2 fL (7.0-11.0); Mono # (Auto) 0.1 th/mm3 (0.0-0.9); Neut # (Auto) 6.2 th/mm3 (1.8-7.7); Neut % (Auto) 91.1 % (16.0-70.0); Platelet Count 312 th/mm3 (150-450); Red Blood Count 3.47 mil/mm3 (4.00-5.30); Red Cell Distribution Width 15.2 % (11.6-17.2); White Blood Count 6.9 th/mm3 (4.0-11.0)
[2018-05-09 00:02] LABS: Calcium 8.1 mg/dL (8.5-10.1); Carbon Dioxide 27.2 meq/L (21.0-32.0); Potassium 4.1 meq/L (3.5-5.1)
[2018-05-09] MEDS: oxyCODONE/Acetaminophen 10/325 Tablet PO PRN ×2 (01:21→05:57)
[2018-05-09] MEDS: Levothyroxine 125 MCG Tablet PO SCH (05:56)
[2018-05-09] MEDS: Isosorbide Mononitrate 20 MG Tablet PO SCH ×3 (05:56→13:11)
[2018-05-09] MEDS: Sod Chloride 0.9% Inj 1,000 ML IV.CONT SCH ×2 (06:06→16:54)
[2018-05-09 07:30] LABS: Baso % (Auto) 0.1 % (0.0-2.0); Hematocrit 31.6 % (35.0-46.0); Hemoglobin 10.6 gm/dL (11.6-15.3); Lymph # (Auto) 0.8 th/mm3 (1.0-4.8); Lymph % (Auto) 8.6 % (9.0-44.0); Mean Corpuscular HGB Conc 33.7 % (32.0-36.0); Mean Platelet Volume 8.2 fL (7.0-11.0); Mono # (Auto) 0.3 th/mm3 (0.0-0.9); Mono % (Auto) 3.1 % (0.0-8.0); Neut # (Auto) 8.7 th/mm3 (1.8-7.7); Neut % (Auto) 88.2 % (16.0-70.0); Platelet Count 333 th/mm3 (150-450); Red Blood Count 3.43 mil/mm3 (4.00-5.30); Red Cell Distribution Width 15.3 % (11.6-17.2); White Blood Count 9.8 th/mm3 (4.0-11.0)
--- NOTE | 2018-05-09 07:56 | P.PNOP ---
Subjective Interval history: Stable postop day 1. Pain well controlled. Culture growing gram-negative lewis Physical Exam Vital signs: Vital Signs 05/08/18 08:00 05/08/18 11:35 05/08/18 11:45 Temperature 97.8 F 96.1 F L Pulse Rate 63 95 H 87 Respiratory Rate 17 20 20 Blood Pressure 131/73 158/86 H 153/71 H Pulse Oximetry 95 05/08/18 12:00 05/08/18 12:15 05/08/18 12:30 Temperature Pulse Rate 85 95 H 86 Respiratory Rate 20 20 20 Blood Pressure 160/83 H 176/80 H 152/81 H Pulse Oximetry 05/08/18 13:00 05/08/18 16:00 05/08/18 16:57 Temperature 97.5 F L 97.5 F L Pulse Rate 74 65 Respiratory Rate 20 17 18 Blood Pressure 149/67 H 90/51 L Pulse Oximetry 93 L 05/08/18 20:00 05/09/18 00:00 05/09/18 04:00 Temperature 97.6 F 98.8 F 98.1 F Pulse Rate 79 77 65 Respiratory Rate 18 18 18 Blood Pressure 109/59 L 98/57 L 111/55 L Pulse Oximetry 92 L 92 L 92 L Intake & Output 05/08/18 05/09/18 05/09/18 18:59 06:59 18:59 Intake Total 3090 / 3090 1000 / 1000 Output Total 1600 / 1600 150 / 150 Balance 1490 / 1490 850 / 850 Intake: IV 1350 / 1350 1000 / 1000 LR 1000 mL Inj 1,000 ML @ 80 1000 / 1000 mls/hr IV.CONT .[id number] PATRICE Rx# :[id number] NS Inj 1,000 ML @ 70 mls/hr IV. 1000 / 1000 CONT .[id number] PATRICE Rx#:[id number] Azactam Inj 1,000 MG In NS Inj 100 / 100 100 ML @ 200 mls/hr IV.SIG Q12H PATRICE Rx#:[id number] Vancomycin Inj 1,000 MG In NS 250 / 250 Inj 250 ML @ 250 mls/hr IV.SIG Q24H PATRICE Rx#:[id number] Oral 240 / 240 Anesthesia Amount 1500 / 1500 Output: Urine 675 / 675 150 / 150 Estimated Blood Loss 275 / 275 Urine Amount (Catheter) 650 / 650 Indwelling Urethral Catheter 650 / 650 Other: Mode Setting Right Hip Continuous Continuous Narrative: Wound VAC in place. Leg lengths equal. Neuro exam normal. No calf tenderness - Urinary Catheter Management Indwelling Urethral Catheter Cath placed during this visit: no Reason for continuing: Other continuation reason Results - Labs CBC & Chem 7: 05/09/18 06:31 05/08/18 23:06 Laboratory Results - last 24 hr 05/08/18 05/08/18 05/09/18 23:06 23:06 06:31 WBC 6.9 9.8 RBC 3.47 L 3.43 L Hgb 10.7 L D 10.6 L Hct 32.4 L 31.6 L MCV 93.3 92.0 MCH 30.8 31.0 MCHC 33.0 33.7 RDW 15.2 15.3 Plt Count 312 D 333 MPV 8.2 8.2 Neut % (Auto) 91.1 H 88.2 H Lymph % (Auto) 7.9 L 8.6 L [place] % (Auto) 1.0 3.1 Eos % (Auto) 0.0 0.0 Baso % (Auto) 0.0 0.1 Neut # (Auto) 6.2 8.7 H Lymph # (Auto) 0.5 L 0.8 L [place] # (Auto) 0.1 0.3 Eos # (Auto) 0.0 0.0 Baso # (Auto) 0.0 0.0 WBC Differential . . Differential Comment Auto diff final Auto diff final Sodium 137 Potassium 4.1 D Chloride 99 Carbon Dioxide 27.2 Anion Gap 11 BUN 16 Creatinine 1.40 H Estimated GFR 35 L Random Glucose 328 H D Calcium 8.1 L D Microbiology 05/07/18 16:00 Abscess - Leg Gram Stain - Final 05/07/18 16:00 Abscess - Leg Wound Culture - Preliminary gram negative rods 05/07/18 14:40 Blood - Peripheral Aerobic Blood Culture - Preliminary No growth in 1 day 05/07/18 14:40 Blood - Peripheral Anaerobic Blood Culture - Preliminary No growth in 1 day 05/07/18 14:40 Blood - Peripheral Aerobic Blood Culture - Preliminary No growth in 1 day 05/07/18 14:40 Blood - Peripheral Anaerobic Blood Culture - Preliminary No growth in 1 day - Imaging Impressions Hip X-Ray 05/08/18 00:00 CONCLUSION: Expected postoperative changes status post right hip arthroplasty. Assessment and Plan - Assessment and Plan Status post revision right total hip replacement arthroplasty, 2-1/2 months ago. Status post proximal femoral osteotomy. Infection of the incision of the right total hip. SURGERY: Debridement of right hip with placement of large wound VAC PLAN: Stable orthopedically. No evidence that infection tracks down to total hip replacement. All of infection was in skin and subcutaneous tissue down to the fascia. Wound VAC will need to be changed , Monday and then Monday. Pain medications and DVT prophylaxis per admitting service. Patient was on anticoagulants prior to surgery. Weightbearing as tolerated. We will continue to follow while in hospital
[2018-05-09 07:58] LABS: Calcium 8.3 mg/dL (8.5-10.1); Carbon Dioxide 31.1 meq/L (21.0-32.0); Potassium 4.3 meq/L (3.5-5.1)
[2018-05-09] MEDS: Metoprolol Tartrate 100 MG Tablet PO SCH ×2 (08:47→20:41)
[2018-05-09] MEDS: Allopurinol 100 MG Tablet PO SCH (08:47)
[2018-05-09] MEDS: Ferrous Sulfate 325 MG Tablet PO SCH (08:47)
[2018-05-09] MEDS: Multivitamin/Minerals Therapeutic Tablet PO SCH ×2 (08:47→20:41)
[2018-05-09] MEDS: Senna/Docusate Sodium 8.6/50 MG Tablet PO SCH ×2 (08:47→20:41)
--- NOTE | 2018-05-09 08:50 | P.PNIM ---
Subjective Interval history: Mrs. Brady was afebrile with stable vital signs overnight. Patient reports that she did well overnight; she has had some hip pain and has been taking some oral PRN medications. Patient does not report shortness of breath. She has normal appetite today. Patient plans to ambulate later today. Garcia catheter in place. Discussed briefly with daughter. Physical Exam Vital signs: Vital Signs 05/08/18 11:35 05/08/18 11:45 05/08/18 12:00 Temperature 96.1 F L Pulse Rate 95 H 87 85 Respiratory Rate 20 20 20 Blood Pressure 158/86 H 153/71 H 160/83 H Pulse Oximetry 05/08/18 12:15 05/08/18 12:30 05/08/18 13:00 Temperature 97.5 F L Pulse Rate 95 H 86 74 Respiratory Rate 20 20 20 Blood Pressure 176/80 H 152/81 H 149/67 H Pulse Oximetry 05/08/18 16:00 05/08/18 16:57 05/08/18 20:00 Temperature 97.5 F L 97.6 F Pulse Rate 65 79 Respiratory Rate 17 18 18 Blood Pressure 90/51 L 109/59 L Pulse Oximetry 93 L 92 L 05/09/18 00:00 05/09/18 04:00 05/09/18 08:00 Temperature 98.8 F 98.1 F 97.8 F Pulse Rate 77 65 88 Respiratory Rate 18 18 19 Blood Pressure 98/57 L 111/55 L 109/58 L Pulse Oximetry 92 L 92 L 97 Intake & Output 05/08/18 05/09/18 05/09/18 18:59 06:59 18:59 Intake Total 3090 / 3090 1000 / 1000 Output Total 1600 / 1600 150 / 150 Balance 1490 / 1490 850 / 850 Intake: IV 1350 / 1350 1000 / 1000 LR 1000 mL Inj 1,000 ML @ 80 1000 / 1000 mls/hr IV.CONT .[id number] [facility] Rx# :[id number] NS Inj 1,000 ML @ 70 mls/hr IV. 1000 / 1000 CONT .[id number] [facility] Rx#:[id number] Azactam Inj 1,000 MG In NS Inj 100 / 100 100 ML @ 200 mls/hr IV.SIG Q12H [facility] Rx#:[id number] Vancomycin Inj 1,000 MG In NS 250 / 250 Inj 250 ML @ 250 mls/hr IV.SIG Q24H [facility] Rx#:[id number] Oral 240 / 240 Anesthesia Amount 1500 / 1500 Output: Urine 675 / 675 150 / 150 Estimated Blood Loss 275 / 275 Urine Amount (Catheter) 650 / 650 Indwelling Urethral Catheter 650 / 650 Other: Mode Setting Right Hip Continuous Continuous Narrative: Gen: No acute distress Skin: R hip wound vac in place; otherwise unremarkable EENT: EOM grossly intact. Cardiovascular: Regular rate and rhythm without murmurs. Normal peripheral perfusion Respiratory: CTAB; normal rate Abdomen: Soft, nontender, nondistended Musculoskeletal: Grossly normal ROM and motor function of upper extremities. Bilateral calves symmetrical : Garcia in place Neuro: Cranial nerves grossly intact. Grossly normal peripheral sensory/motor function Psych: Appropriate mood and affect - Urinary Catheter Management Indwelling Urethral Catheter Cath placed during this visit: no Reason for continuing: Other continuation reason Results - Labs CBC & Chem 7: 05/09/18 06:31 05/09/18 06:31 Laboratory Results - last 24 hr 05/08/18 05/08/18 05/09/18 23:06 23:06 06:31 WBC 6.9 9.8 RBC 3.47 L 3.43 L Hgb 10.7 L D 10.6 L Hct 32.4 L 31.6 L MCV 93.3 92.0 MCH 30.8 31.0 MCHC 33.0 33.7 RDW 15.2 15.3 Plt Count 312 D 333 MPV 8.2 8.2 Neut % (Auto) 91.1 H 88.2 H Lymph % (Auto) 7.9 L 8.6 L [place] % (Auto) 1.0 3.1 Eos % (Auto) 0.0 0.0 Baso % (Auto) 0.0 0.1 Neut # (Auto) 6.2 8.7 H Lymph # (Auto) 0.5 L 0.8 L [place] # (Auto) 0.1 0.3 Eos # (Auto) 0.0 0.0 Baso # (Auto) 0.0 0.0 WBC Differential . . Differential Comment Auto diff final Auto diff final Sodium 137 Potassium 4.1 D Chloride 99 Carbon Dioxide 27.2 Anion Gap 11 BUN 16 Creatinine 1.40 H Estimated GFR 35 L Random Glucose 328 H D Calcium 8.1 L D 05/09/18 06:31 WBC RBC Hgb Hct MCV MCH MCHC RDW Plt Count MPV Neut % (Auto) Lymph % (Auto) [place] % (Auto) Eos % (Auto) Baso % (Auto) Neut # (Auto) Lymph # (Auto) [place] # (Auto) Eos # (Auto) Baso # (Auto) WBC Differential Differential Comment Sodium 138 Potassium 4.3 Chloride 101 Carbon Dioxide 31.1 Anion Gap 6 BUN 18 Creatinine 1.45 H Estimated GFR 34 L Random Glucose 156 H D Calcium 8.3 L Microbiology 05/08/18 10:45 Tissue - Hip Acid Fast Bacilli Smear - Final No acid fast bacilli seen 05/07/18 16:00 Abscess - Leg Gram Stain - Final 05/07/18 16:00 Abscess - Leg Wound Culture - Preliminary gram negative rods 05/07/18 14:40 Blood - Peripheral Aerobic Blood Culture - Preliminary No growth in 1 day 05/07/18 14:40 Blood - Peripheral Anaerobic Blood Culture - Preliminary No growth in 1 day 05/07/18 14:40 Blood - Peripheral Aerobic Blood Culture - Preliminary No growth in 1 day 05/07/18 14:40 Blood - Peripheral Anaerobic Blood Culture - Preliminary No growth in 1 day - Imaging Impressions Hip X-Ray 05/08/18 00:00 CONCLUSION: Expected postoperative changes status post right hip arthroplasty. Assessment and Plan - Assessment (1) Wound infection after surgery Code(s): T81.4XXA - Infection following a procedure, initial encounter Status : Acute (2) Atrial fibrillation Code(s): I48.91 - Unspecified atrial fibrillation Status: Chronic (3) CHF (congestive heart failure) Code(s): I50.9 - Heart failure, unspecified Status: Chronic (4) HTN (hypertension) Code(s): I10 - Essential (primary) hypertension Status: Chronic (5) History of pacemaker Code(s): Z95.0 - Presence of cardiac pacemaker Status: Chronic - Plan Mrs. Brady is a 87 yo F with PMH/PSH prior hip replacement, atrial fibrillation , prior DVT, HTN R hip fluid collection Impression: PSH of revision of distant prior R total hip replacement 02/[address] Galindo due to broken femoral stem. 5 days prior had swelling after bumping leg; found to have spontaneous drainage. Outpatient labs- culture obtained- elevated ESR- 36. CT- induration R lateral pelvic/upper thigh SQ fat. Also, skin thickening. Elongated fluid collection up to 11 cm in length Labs: ESR 58. No leukocytosis. Cr 2.5 on admission-> 1.8 05/07 Cultures: Blood negative x1 day -Leg wound- gram negative rods, pending -Orthopedic surgery consulted -debridement/irrigation performed today with irrigation of skin subcutaneous tissue and muscle/fascia. Infection extended to fascia but not through it. Large wound vac placed. -Antibiotic coverage -Continue vancomycin -Continue Aztreonam for gram negative coverage due to PCN anaphylaxis previously -Will defer ID consult currently since superficial/ joint space involvement not currently suspected based on surgical eval yesterday -Pain control -Percocet pain scale, morphine for break through pain DES Impression: Cr 0.87 on admission -> 1.45 today. On Vancomycin. -Will increase IVF LR to 150ml/hr -Will continue Vancomycin currently since day 1 of cultures Cardiovascular History of atrial fibrillation Impression: Currently rate controlled -Will continue rate control with Metoprolol -Will continue Xarelto >24hrs post-op CHF Impression: Per EMR. 06/2017 EF 60-65%; unclear whether was prior overload from uncontrolled afib? -Continue home Bumetanide HTN Impression: Controlled currently -Continue home Metoprolol, Isosorbide Other chronic conditions -Will continue home Allopurinol, Oxybutynin DVT PPX -Will plan to restart Xarelto >24hrs post-op Code Status: Full code
[2018-05-09] MEDS: Rivaroxaban 10 MG Tablet PO SCH (10:42)
[2018-05-09] MEDS: Melatonin 5 MG Tablet PO PRN (23:51)
[2018-05-10] MEDS: Levothyroxine 125 MCG Tablet PO SCH (05:25)
[2018-05-10] MEDS: Isosorbide Mononitrate 20 MG Tablet PO SCH ×2 (05:33→21:31)
[2018-05-10 07:17] LABS: Baso % (Auto) 0.5 % (0.0-2.0); Eos # (Auto) 0.2 th/mm3 (0.0-0.4); Eos % (Auto) 2.7 % (0.0-4.0); Hematocrit 30.5 % (35.0-46.0); Hemoglobin 10.2 gm/dL (11.6-15.3); Lymph # (Auto) 2.4 th/mm3 (1.0-4.8); Mean Corpuscular HGB Conc 33.5 % (32.0-36.0); Mean Corpuscular Hemoglobin 30.9 pg (27.0-34.0); Mean Corpuscular Volume 92.4 fL (80.0-100.0); Mean Platelet Volume 7.6 fL (7.0-11.0); Mono # (Auto) 0.4 th/mm3 (0.0-0.9); Mono % (Auto) 4.3 % (0.0-8.0); Neut # (Auto) 5.8 th/mm3 (1.8-7.7); Neut % (Auto) 65.5 % (16.0-70.0); Platelet Count 323 th/mm3 (150-450); Red Blood Count 3.31 mil/mm3 (4.00-5.30); Red Cell Distribution Width 15.1 % (11.6-17.2); White Blood Count 8.9 th/mm3 (4.0-11.0)
[2018-05-10 07:45] LABS: Calcium 8.6 mg/dL (8.5-10.1); Carbon Dioxide 31.8 meq/L (21.0-32.0); Potassium 4.1 meq/L (3.5-5.1)
[2018-05-10 07:46] LABS: Vancomycin,Random 10.9 Comment
--- NOTE | 2018-05-10 07:53 | P.PNOP ---
Subjective Interval history: Debridement of right hip with placement of large wound VAC POD #2 Pt awake and alert, admits pain well controlled. Admits she walked well with PT. Admits to increase in urination since healy was pulled. No other complaints. Physical Exam Vital signs: Vital Signs 05/09/18 08:00 05/09/18 11:50 05/09/18 16:00 Temperature 97.8 F 98.0 F 97.9 F Pulse Rate 88 67 67 Respiratory Rate 19 18 18 Blood Pressure 109/58 L 128/60 100/52 L Pulse Oximetry 97 100 94 L 05/09/18 20:00 05/10/18 00:00 Temperature 97.3 F L 97.3 F L Pulse Rate 68 63 Respiratory Rate 18 18 Blood Pressure 110/58 L 112/56 L Pulse Oximetry 93 L 93 L Intake & Output 05/09/18 05/10/18 05/10/18 18:59 06:59 18:59 Intake Total 2920 / 2920 1360 / 1360 Output Total 150 / 150 200 / 200 Balance 2770 / 2770 1160 / 1160 Weight 78.5 kg Intake: IV 2200 / 2200 1000 / 1000 LR 1000 mL Inj 1,000 ML @ 150 2000 / 2000 1000 / 1000 mls/hr IV.CONT .Q6H40M [facility] Rx#: [id number] Azactam Inj 1,000 MG In NS Inj 200 / 200 100 ML @ 200 mls/hr IV.SIG Q12H [facility] Rx#:[id number] Oral 720 / 720 360 / 360 Output: Urine 150 / 150 Wound Vac Amount 200 / 200 Right Hip 200 / 200 Other: Mode Setting Right Hip Continuous Continuous # Incontinent Voids 2 Narrative: Dressing dry and intact. Wound vac has good seal. Tender to palpation with mild swelling around incision site. Appropriate range of motion expected post operatively. Freely able to move distal digits. No calf pain. Negative Obdulio's sign. Good cap refill. 2+ pedal pulses. Neurovascular intact. - Urinary Catheter Management Indwelling Urethral Catheter Cath placed during this visit: no Reason for continuing: Other continuation reason Results - Labs CBC & Chem 7: 05/10/18 06:55 05/10/18 06:55 Laboratory Results - last 24 hr 05/09/18 05/10/18 05/10/18 06:31 06:55 06:55 WBC 8.9 RBC 3.31 L Hgb 10.2 L Hct 30.5 L MCV 92.4 MCH 30.9 MCHC 33.5 RDW 15.1 Plt Count 323 MPV 7.6 Neut % (Auto) 65.5 Lymph % (Auto) 27.0 [place] % (Auto) 4.3 Eos % (Auto) 2.7 Baso % (Auto) 0.5 Neut # (Auto) 5.8 Lymph # (Auto) 2.4 [place] # (Auto) 0.4 Eos # (Auto) 0.2 Baso # (Auto) 0.0 WBC Differential . Differential Comment Auto diff final Sodium 138 141 Potassium 4.3 4.1 Chloride 101 102 Carbon Dioxide 31.1 31.8 Anion Gap 6 7 BUN 18 21 H Creatinine 1.45 H 1.12 H Estimated GFR 34 L 46 L Random Glucose 156 H D 94 Calcium 8.3 L 8.6 Random Vancomycin 10.9 Microbiology 05/08/18 10:45 Tissue - Hip Gram Stain - Final 05/08/18 10:45 Tissue - Hip Wound Culture - Preliminary Klebsiella pneumoniae 05/07/18 14:40 Blood - Peripheral Aerobic Blood Culture - Preliminary No growth in 2 days 05/07/18 14:40 Blood - Peripheral Anaerobic Blood Culture - Preliminary No growth in 2 days 05/07/18 14:40 Blood - Peripheral Aerobic Blood Culture - Preliminary No growth in 2 days 05/07/18 14:40 Blood - Peripheral Anaerobic Blood Culture - Preliminary No growth in 2 days 05/07/18 16:00 Abscess - Leg Gram Stain - Final 05/07/18 16:00 Abscess - Leg Wound Culture - Final Klebsiella pneumoniae 05/08/18 10:45 Tissue - Hip Fungal Smear - Final No fungal elements seen 05/08/18 10:45 Tissue - Hip Acid Fast Bacilli Smear - Final No acid fast bacilli seen - Procedures Status post revision right total hip replacement arthroplasty, 2-1/2 months ago. Status post proximal femoral osteotomy. Infection of the incision of the right total hip Debridement of right hip with placement of large wound VAC Assessment and Plan - Assessment and Plan Status post revision right total hip replacement arthroplasty, 2-1/2 months ago. Status post proximal femoral osteotomy. Infection of the incision of the right total hip. SURGERY: Debridement of right hip with placement of large wound VAC POD #2 PLAN: Stable orthopedically. No evidence that infection tracks down to total hip replacement. All of infection was in skin and subcutaneous tissue down to the fascia. Wound VAC will need to be changed , Monday and then follow a Monday schedule. Xarelto for DVT prophylaxis, Oxycodone for pain per medicine Progress rehab - Weightbearing as tolerated. Ortho will continue to follow while in hospital + Klebsiella, Consult for Infectious Disease placed, most likely will require termite treater antibiotics
[2018-05-10] MEDS: Ferrous Sulfate 325 MG Tablet PO SCH (09:23)
[2018-05-10] MEDS: Allopurinol 100 MG Tablet PO SCH (09:23)
[2018-05-10] MEDS: Metoprolol Tartrate 100 MG Tablet PO SCH ×2 (09:23→21:34)
[2018-05-10] MEDS: Senna/Docusate Sodium 8.6/50 MG Tablet PO SCH ×2 (09:24→21:34)
[2018-05-10] MEDS: Multivitamin/Minerals Therapeutic Tablet PO SCH ×2 (09:24→21:33)
[2018-05-10] MEDS: Rivaroxaban 10 MG Tablet PO SCH (11:21)
[2018-05-10] MEDS: Vancomycin Inj 1,000 MG in Sodium Chlor 0.9% Inj 250 ML IV.SIG SCH (11:23)
--- NOTE | 2018-05-10 14:51 | P.PNWCN ---
Wound/Pressure Injury - Wound Right Hip Wound Assessment: Ongoing Wound Type: Traumatic Wound (Open surgical wound healing by secondary intention) Is This a Chronic Wound: No Requested from Provider a Wound Care Consult: No Length: 27 (cm) Width: 19 (cm) Depth: 3.1 (cm) Wound Bed Appearance: Red, White Wound Bed Appearance: ~75% red granulation tissue, ~10% facia and ~15% adipose tissue. Surrounding Tissue Temperature: Warm Drainage Description: Sanguinous Drainage Amount: Minimal Drainage Odor: No Odor Dressing Status: Changed Wound Packing Type: Woundvac Sponge Primary Dressing: Transparent Tape Type: Transparent Wound Dressing Change Date: 05/10/18 Wound Margin Description: Step, open and well defined Wound Vac - Wound Vac Right Hip Pressure Setting (mmHg): 125 Mode Setting: Continuous Drainage Description: Serosanguinous Foam type: Black - Additional Information Patient seen on for wound VAC dressing change as ordered by Doctor Josie.Patient was premedicated for pain. Dressing was changed with the assistance of Maribel Tran RN, WCC and caption writer. Removed wound VAC dressing in place including one large piece of black granufoam from wound bed. Wound measurements and descriptions are noted above.Wound was then cleansed with normal saline and patted dry. Applied oil emulsion gauze (adaptic) over exposed facia in wound bed.Applied skin barrier film spray to periwound before window paning wound with VAC drape.Applied one large piece of black granufoam to wound bed and one small piece of black granufoam to fill in entire wound bed, for a total of two pieces in wound bed.Covered granufoam in wound bed with VAC drape. Hole was cut to expose granufoam and one strip of black granufoam was bridged from R hip to R anterior thigh. Applied mushroom cap of black granufoam to bridged granufoam with attached Sensi trac pad. Wound VAC is suctioning at 125 mm/Hg with low leak rate.VAC dressing was reinforced with VAC drape to cover leaks.
[2018-05-10] MEDS ORDERED: Pharmacy Ordered Lab Info OTHER ONE (15:45)
--- NOTE | 2018-05-10 18:17 | P.CONID ---
History of Present Illness Service: ID Consult date: 05/10/18 Requesting Physician: Danyelle Mack (Ashley) Reason for Consult: ESBL R hip infx Primary Care Provider: Ashley Almanzar History of Present Illness: 87 yo F with h/o b/l hip replacement R hip originally replaced in 1998 , 2nd prosthesis placed in February of this year Pain persisted after surgery and would not go away She noticed swelling 1 week ago NO drainage from incision however No fever, chills Normal WBC Large fluid collection of CT She underwent I+D and VAC placement 2 days ago Clx growing ESBL Reportedly PCN allergy , "rash and rapid heart rate", 50 yrs ago Review of Systems All other systems reviewed negative except as stated in HPI PMFSH - History History Provided By: Patient - Medical History Medical History: Medical History (Last Reviewed 07/02/18 @ 06:10 by Snehal Sagastume MD) A-fib CHF (congestive heart failure) FH: total knee replacement H/O: hysterectomy Hip replacement planned Hypertension Pacemaker - Surgical History Surgical History: Surgical History (Last Reviewed 07/02/18 @ 06:10 by Snehal Sagastume MD) H/O bilateral hip replacements H/O thyroidectomy History of knee replacement Hx of tonsillectomy - Family History Family History: Family History (Last Reviewed 07/02/18 @ 06:10 by Snehal Sagastume MD) Other Diabetes mellitus - Social History I have reviewed the patient's Social History: Yes - Tobacco History Second Hand Smoke Exposure: No Smoking Status: Never smoker - Alcohol History How Often Do You Have a Drink Containing Alcohol: 2 to 3 times a week - Substance Use History Substance History: No History of Abuse - Travel History Recent Travel in the [place] Within the Last 8 Weeks: No Recent Travel Out of the Country Within the Last 8 Weeks: No - Immunization History Tetanus Immunization: <5 Years Hx Influenza Vaccine This Season: Yes Medications and Allergies Active Medications: Active Medications Acetaminophen (Tylenol) 650 mg PO Q4H PRN PRN Reason: Temp > 100.4 Al Hydroxide/Mg Hydroxide (Milk Of Magnesia Liq) 30 ml PO BID PRN PRN Reason: Mild Constipation Allopurinol (Zyloprim) 100 mg PO DAILY [facility] Last Admin: 05/10/18 09:23 Dose: 100 mg Bisacodyl (Dulcolax Supp) 10 mg RECTAL DAILY PRN PRN Reason: SEVERE CONSITIPATION Bumetanide (Bumex) 1 mg PO DAILY [facility] Last Admin: 05/10/18 09:24 Dose: 1 mg Chlorhexidine Gluconate (Chlorhexidine 2% Cloth) 3 pack TOPICAL [employer]ATING [employer]PER[employer] [facility] Stop: 05/11/18 09:02 Diphenhydramine HCl (Benadryl) 25 mg PO Q6H PRN PRN Reason: ITCHING Ferrous Sulfate (Ferosul) 325 mg PO DAILY [facility] Last Admin: 05/10/18 09:23 Dose: 325 mg Pharmacy Profile Note (Vancomycin Consult Pharmacy) 0 mls @ 0 mls/hr OTHER UNSCH [facility] Sodium Chloride (Ns Inj) 1,000 mls @ 70 mls/hr IV.CONT .[id number] [facility] Last Admin: 05/09/18 16:54 Dose: Not Given Sodium Chloride (Ns Inj) 500 mls @ 30 mls/hr IV.SIG .Q10H [facility] Stop: 05/11/18 09:02 Lactated Ringer's (Lr 1000 Ml Inj) 1,000 mls @ 150 mls/hr IV.CONT .Q6H40M [facility] Last Admin: 05/10/18 04:10 Dose: 80 mls/hr Aztreonam 1,000 mg/ Sodium (Chloride) 100 mls @ 200 mls/hr IV.SIG Q12H [facility] Last Admin: 05/10/18 05:26 Dose: 200 mls/hr Vancomycin HCl 1,000 mg/ (Sodium Chloride) 250 mls @ 250 mls/hr IV.SIG Q24H [facility] Last Admin: 05/10/18 11:23 Dose: 250 mls/hr Isosorbide Mononitrate (Ismo) 10 mg PO BID@0700,1400 [facility] Last Admin: 05/10/18 05:33 Dose: 10 mg Lactulose (Lactulose Liq) 30 ml PO DAILY PRN PRN Reason: SEVERE CONSITIPATION Levothyroxine Sodium (Synthroid) 125 mcg PO DAILY@0600 [facility] Last Admin: 05/10/18 05:25 Dose: 125 mcg Melatonin (Melatonin) 5 mg PO HS PRN PRN Reason: INSOMNIA Last Admin: 05/09/18 23:51 Dose: 5 mg Metoprolol Tartrate (Lopressor) 100 mg PO BID [facility] Last Admin: 05/10/18 09:23 Dose: 100 mg Metoprolol Tartrate (Lopressor) 25 mg PO [employer]ATING [employer] OPERATOR [facility] Stop: 05/11/18 09:02 Miscellaneous (Pill Splitter) 1 each OTHER UNSCH PRN PRN Reason: SEE LABEL COMMENTS Morphine Sulfate (Morphine Inj) 4 mg IV.PUSH Q2H PRN PRN Reason: BREAKTHROUGH PAIN Last Admin: 05/10/18 14:56 Dose: 4 mg Multivitamins/Minerals (Theragran-M) 1 tab PO BID [facility] Stop: 07/07/18 20:59 Last Admin: 05/10/18 09:24 Dose: 1 tab Ondansetron HCl (Zofran Odt) 4 mg PO Q6H PRN PRN Reason: NAUSEA OR VOMITING Oxybutynin Chloride (Ditropan) 5 mg PO DAILY [facility] Last Admin: 05/10/18 09:23 Dose: 5 mg Oxycodone/Acetaminophen (Percocet 5/325 Mg) 1 tab PO Q4H PRN PRN Reason: PAIN SCALE 6 TO 10 Last Admin: 05/10/18 13:02 Dose: 1 tab Potassium Chloride (K-Dur) 20 meq PO DAILY [facility] Last Admin: 05/10/18 09:24 Dose: 20 meq Povidone Iodine (Betadine 5% Antisepsis Kit) 1 applicatio EACH NARE [employer]ATING [employer] OPERATOR [facility] Stop: 05/11/18 09:02 Rivaroxaban (Xarelto) 10 mg PO Q24H [facility] Last Admin: 05/10/18 11:21 Dose: 10 mg Senna/Docusate Sodium (Reny-Colace) 1 tab PO BID [facility] Last Admin: 05/10/18 09:24 Dose: 1 tab Sennosides (Senokot) 17.2 mg PO BID PRN PRN Reason: Moderate Constipation Sodium Chloride (Ns Flush) 2 ml IV.FLUSH BID [facility] Last Admin: 05/10/18 11:24 Dose: Not Given Sodium Chloride (Ns Flush) 2 ml IV.FLUSH UNSCH PRN PRN Reason: FLUSH AFTER USING IV ACCESS Allergies Allergy/AdvReac Type Severity Reaction Status Date / Time penicillin G Allergy Unknown Rash Verified 05/07/18 15:22 Home Medications Medication Instructions Recorded Confirmed Type allopurinol 100 mg PO DAILY 05/07/18 05/07/18 History bumetanide 1 mg PO DAILY 05/07/18 05/07/18 History cholecalciferol (vitamin D3) 5,000 unit PO DAILY 05/07/18 05/07/18 History [Vitamin D3] ferrous sulfate 325 mg PO DAILY 05/07/18 05/07/18 History isosorbide mononitrate 10 mg PO BID 05/07/18 05/07/18 History levothyroxine 125 mcg PO DAILY 05/07/18 05/07/18 History melatonin 3 mg PO HS PRN 05/07/18 05/07/18 History metoprolol tartrate 100 mg PO BID 05/07/18 05/07/18 History oxybutynin chloride 5 mg PO DAILY 05/07/18 05/07/18 History potassium chloride 20 meq PO DAILY 05/07/18 05/07/18 History rivaroxaban [Xarelto] 20 mg PO DAILY 05/07/18 05/07/18 History sodium chloride 2 tab PO DAILY 05/07/18 05/07/18 History Exam Vital signs: Vital Signs 05/09/18 20:00 05/10/18 00:00 05/10/18 08:00 Temperature 97.3 F L 97.3 F L 97.3 F L Pulse Rate 68 63 61 Respiratory Rate 18 18 17 Blood Pressure 110/58 L 112/56 L 150/70 H Pulse Oximetry 93 L 93 L 93 L 05/10/18 12:00 05/10/18 16:00 Temperature 97.4 F L 97.1 F L Pulse Rate 62 60 Respiratory Rate 17 16 Blood Pressure 156/70 H 96/55 L Pulse Oximetry 95 93 L Intake & Output 05/09/18 05/10/18 05/10/18 18:59 06:59 18:59 Intake Total 2920 / 2920 1360 / 1360 Output Total 150 / 150 200 / 200 Balance 2770 / 2770 1160 / 1160 Weight 78.5 kg Intake: IV 2200 / 2200 1000 / 1000 LR 1000 mL Inj 1,000 ML @ 150 2000 / 2000 1000 / 1000 mls/hr IV.CONT .Q6H40M [facility] Rx#: [id number] Azactam Inj 1,000 MG In NS Inj 200 / 200 100 ML @ 200 mls/hr IV.SIG Q12H [facility] Rx#:[id number] Oral 720 / 720 360 / 360 Output: Urine 150 / 150 Wound Vac Amount 200 / 200 Right Hip 200 / 200 Other: Mode Setting Right Hip Continuous Continuous Continuous # Voids 5 # Incontinent Voids 2 # Bowel Movements 0 - Constitutional no acute distress, obese - Routine HEENT Exam Head: Present: normocephalic, atraumatic Eye: Present: EOMI, PERRL ENT: Present: mucous membranes moist, oropharynx clear - Routine Neck Exam Present: supple, full ROM - Routine Chest/Breast/Axilla Exam Chest wall: Present: pacemaker (no skin changes over ) - Routine Respiratory Exam Present: decreased breath sounds, CTA bilaterally - Routine Cardiovascular Exam Present: RRR, S1 (decreased), S2, murmur (holosystolic harsh, 3/6) - Routine Abdominal Exam Present: soft, normoactive bowel sounds Comments: not tender not disteded - Routine Extremities Exam Comments: no cyanosis clubbing no edema STATUS LOCALIS: Large skin defecet over R hip covered with VAC dressing with serosangious drainage + surrounding edema, erytham - Routine Skin Exam Present: intact Comments: no rash - Routine Neurological Exam Present: alert, oriented X3, CN II-XII intact, moving all extremities, vision grossly intact, hearing grossly intact, normal speech - Routine Psychiatric Exam Present: normal affect, normal thought process, cooperative Results - Labs CBC & Chem 7: 05/11/18 04:46 05/13/18 07:00 Labs: Laboratory Results - last 24 hr 05/10/18 05/10/18 06:55 06:55 WBC 8.9 RBC 3.31 L Hgb 10.2 L Hct 30.5 L MCV 92.4 MCH 30.9 MCHC 33.5 RDW 15.1 Plt Count 323 MPV 7.6 Neut % (Auto) 65.5 Lymph % (Auto) 27.0 [place] % (Auto) 4.3 Eos % (Auto) 2.7 Baso % (Auto) 0.5 Neut # (Auto) 5.8 Lymph # (Auto) 2.4 [place] # (Auto) 0.4 Eos # (Auto) 0.2 Baso # (Auto) 0.0 WBC Differential . Differential Comment Auto diff final Sodium 141 Potassium 4.1 Chloride 102 Carbon Dioxide 31.8 Anion Gap 7 BUN 21 H Creatinine 1.12 H Estimated GFR 46 L Random Glucose 94 Calcium 8.6 Random Vancomycin 10.9 - Imaging Hip CT 05/07/18 14:31 CONCLUSION: 1. Induration in the right lateral pelvic and upper thigh subcutaneous fat. There is also skin thickening. There is a elongated fluid collection seen in the subcutaneous fat measuring up to 11 cm in length represent hematoma, seroma , or abscess. Hip X-Ray 05/08/18 00:00 CONCLUSION: Expected postoperative changes status post right hip arthroplasty. 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
--- NOTE | 2018-05-10 18:44 | P.PNIM ---
Subjective Interval history: Mrs. Brady was afebrile with stable VS overnight. She reports pain with the changing of her wound vac today but otherwise has been doing ok. Patient did not work with physical therapy. Patient urinating normally; no bowel movement. Physical Exam Vital signs: Vital Signs 05/09/18 20:00 05/10/18 00:00 05/10/18 08:00 Temperature 97.3 F L 97.3 F L 97.3 F L Pulse Rate 68 63 61 Respiratory Rate 18 18 17 Blood Pressure 110/58 L 112/56 L 150/70 H Pulse Oximetry 93 L 93 L 93 L 05/10/18 12:00 05/10/18 16:00 Temperature 97.4 F L 97.1 F L Pulse Rate 62 60 Respiratory Rate 17 16 Blood Pressure 156/70 H 96/55 L Pulse Oximetry 95 93 L Intake & Output 05/09/18 05/10/18 05/10/18 18:59 06:59 18:59 Intake Total 2920 / 2920 1460 / 1460 Output Total 150 / 150 200 / 200 Balance 2770 / 2770 1260 / 1260 Weight 78.5 kg Intake: IV 2200 / 2200 1100 / 1100 LR 1000 mL Inj 1,000 ML @ 150 2000 / 2000 1000 / 1000 mls/hr IV.CONT .Q6H40M [facility] Rx#: [id number] Azactam Inj 1,000 MG In NS Inj 200 / 200 100 / 100 100 ML @ 200 mls/hr IV.SIG Q12H [facility] Rx#:[id number] Oral 720 / 720 360 / 360 Output: Urine 150 / 150 Wound Vac Amount 200 / 200 Right Hip 200 / 200 Other: Mode Setting Right Hip Continuous Continuous Continuous # Voids 5 # Incontinent Voids 2 # Bowel Movements 0 Narrative: Gen: No acute distress Skin: R hip wound vac in place Cardiovascular: Regular rate and rhythm without murmurs. Normal peripheral perfusion Respiratory: CTAB; normal rate Abdomen: Soft, nontender, nondistended Musculoskeletal: Grossly normal ROM and motor function of upper extremities. Bilateral calves symmetrical Neuro: Cranial nerves grossly intact. Grossly normal peripheral sensory/motor function Psych: Appropriate mood and affect - Urinary Catheter Management Indwelling Urethral Catheter Cath placed during this visit: no Reason for continuing: Other continuation reason Results - Labs CBC & Chem 7: 05/10/18 06:55 05/10/18 06:55 Laboratory Results - last 24 hr 05/10/18 05/10/18 06:55 06:55 WBC 8.9 RBC 3.31 L Hgb 10.2 L Hct 30.5 L MCV 92.4 MCH 30.9 MCHC 33.5 RDW 15.1 Plt Count 323 MPV 7.6 Neut % (Auto) 65.5 Lymph % (Auto) 27.0 [place] % (Auto) 4.3 Eos % (Auto) 2.7 Baso % (Auto) 0.5 Neut # (Auto) 5.8 Lymph # (Auto) 2.4 [place] # (Auto) 0.4 Eos # (Auto) 0.2 Baso # (Auto) 0.0 WBC Differential . Differential Comment Auto diff final Sodium 141 Potassium 4.1 Chloride 102 Carbon Dioxide 31.8 Anion Gap 7 BUN 21 H Creatinine 1.12 H Estimated GFR 46 L Random Glucose 94 Calcium 8.6 Random Vancomycin 10.9 Microbiology 05/08/18 10:45 Tissue - Hip Gram Stain - Final 05/08/18 10:45 Tissue - Hip Wound Culture - Final Klebsiella pneumoniae 05/07/18 14:40 Blood - Peripheral Aerobic Blood Culture - Preliminary No growth in 3 days 05/07/18 14:40 Blood - Peripheral Anaerobic Blood Culture - Preliminary No growth in 3 days 05/07/18 14:40 Blood - Peripheral Aerobic Blood Culture - Preliminary No growth in 3 days 05/07/18 14:40 Blood - Peripheral Anaerobic Blood Culture - Preliminary No growth in 3 days - Procedures Status post revision right total hip replacement arthroplasty, 2-1/2 months ago. Status post proximal femoral osteotomy. Infection of the incision of the right total hip Debridement of right hip with placement of large wound VAC Assessment and Plan - Assessment (1) Wound infection after surgery Code(s): T81.4XXA - Infection following a procedure, initial encounter Status : Acute (2) Atrial fibrillation Code(s): I48.91 - Unspecified atrial fibrillation Status: Chronic (3) CHF (congestive heart failure) Code(s): I50.9 - Heart failure, unspecified Status: Chronic (4) HTN (hypertension) Code(s): I10 - Essential (primary) hypertension Status: Chronic (5) History of pacemaker Code(s): Z95.0 - Presence of cardiac pacemaker Status: Chronic - Plan Mrs. Brady is a 87 yo F with PMH/PSH prior hip replacement, atrial fibrillation , prior DVT, HTN R hip fluid collection Impression: PSH of revision of distant prior R total hip replacement 02/[address] Galindo due to broken femoral stem. 5 days prior had swelling after bumping leg; found to have spontaneous drainage. Outpatient labs- culture obtained- elevated ESR- 36. CT- induration R lateral pelvic/upper thigh SQ fat. Also, skin thickening. Elongated fluid collection up to 11 cm in length Labs: ESR 58. No leukocytosis. Cr 2.5 on admission-> 1.8 05/07 Cultures: Blood negative x2 day -Leg wound- gram negative rods, pending -Orthopedic surgery consulted -POD 2 debridement/irrigation with irrigation of skin subcutaneous tissue and muscle/fascia. Infection extended to fascia but not through it. Large wound vac placed. -Antibiotic coverage -ID consulted -Changed from Vanc/Aztreonam to Ertapenem -Monitoring- CBC, CMP, ESR, CRP -Pain control -Percocet pain scale, morphine for break through pain DES Impression: Cr 0.87 on admission -> 1.45-> 1.12 -Patient eating/drinking normally; will continue IVF overnight and plan to stop tomorrow morning Cardiovascular History of atrial fibrillation Impression: Currently rate controlled -Will continue rate control with Metoprolol -Resume Xarelto CHF Impression: Per EMR. 06/2017 EF 60-65%; unclear whether was prior overload from uncontrolled afib? -Continue home Bumetanide HTN Impression: Controlled currently -Continue home Metoprolol, Isosorbide Other chronic conditions -Will continue home Allopurinol, Oxybutynin DVT PPX -Xarelto Code Status: Full code
[2018-05-10] MEDS: Sod Chloride 0.9% Inj 1,000 ML IV.CONT SCH (21:31)
[2018-05-10] MEDS: Melatonin 5 MG Tablet PO PRN (21:36)
[2018-05-11] MEDS: Isosorbide Mononitrate 20 MG Tablet PO SCH ×4 (01:05→21:17)
[2018-05-11 05:04] LABS: Baso % (Auto) 0.5 % (0.0-2.0); Eos # (Auto) 0.4 th/mm3 (0.0-0.4); Eos % (Auto) 4.6 % (0.0-4.0); Hemoglobin 10.4 gm/dL (11.6-15.3); Lymph # (Auto) 2.8 th/mm3 (1.0-4.8); Lymph % (Auto) 32.8 % (9.0-44.0); Mean Corpuscular HGB Conc 33.5 % (32.0-36.0); Mean Corpuscular Hemoglobin 30.8 pg (27.0-34.0); Mean Corpuscular Volume 92.1 fL (80.0-100.0); Mean Platelet Volume 7.7 fL (7.0-11.0); Mono # (Auto) 0.4 th/mm3 (0.0-0.9); Mono % (Auto) 4.4 % (0.0-8.0); Neut # (Auto) 4.9 th/mm3 (1.8-7.7); Neut % (Auto) 57.7 % (16.0-70.0); Platelet Count 335 th/mm3 (150-450); Red Blood Count 3.37 mil/mm3 (4.00-5.30); Red Cell Distribution Width 15.3 % (11.6-17.2); White Blood Count 8.6 th/mm3 (4.0-11.0)
[2018-05-11 05:27] LABS: Calcium 8.7 mg/dL (8.5-10.1); Carbon Dioxide 32.7 meq/L (21.0-32.0); Potassium 4.4 meq/L (3.5-5.1)
[2018-05-11] MEDS: Levothyroxine 125 MCG Tablet PO SCH (05:48)
[2018-05-11] MEDS: Sod Chloride 0.9% Inj 1,000 ML IV.CONT SCH (05:50)
--- NOTE | 2018-05-11 07:10 | P.PNOP ---
Subjective Interval history: Patient comfortable. Pain controlled. NAD. Denies fever, chills, or sweats. Physical Exam Vital signs: Vital Signs 05/10/18 08:00 05/10/18 12:00 05/10/18 16:00 Temperature 97.3 F L 97.4 F L 97.1 F L Pulse Rate 61 62 60 Respiratory Rate 17 17 16 Blood Pressure 150/70 H 156/70 H 96/55 L Pulse Oximetry 93 L 95 93 L 05/10/18 20:00 05/11/18 00:00 Temperature 97.7 F 97.4 F L Pulse Rate 84 65 Respiratory Rate 18 16 Blood Pressure 168/70 H 139/63 Pulse Oximetry 94 L 94 L Intake & Output 05/10/18 05/11/18 05/11/18 18:59 06:59 18:59 Intake Total 460 / 460 Output Total 1000 / 1000 Balance -540 / -540 Intake: IV 100 / 100 INVanz Inj 1,000 MG In NS Inj 100 / 100 100 ML @ 100 mls/hr IV.SIG Q24H [facility] Rx#:[id number] Oral 360 / 360 Output: Urine 1000 / 1000 Other: Mode Setting Right Hip Continuous Continuous # Voids 5 3 # Bowel Movements 0 Right hip wound vac C/D/I skin intact no erythema noted distally motor, neuro, and sensory intact - Urinary Catheter Management Indwelling Urethral Catheter Cath placed during this visit: no Reason for continuing: Other continuation reason Results - Labs CBC & Chem 7: 05/11/18 04:46 05/11/18 04:46 Laboratory Results - last 24 hr 05/10/18 05/10/18 05/11/18 06:55 06:55 04:46 WBC 8.9 8.6 RBC 3.31 L 3.37 L Hgb 10.2 L 10.4 L Hct 30.5 L 31.0 L MCV 92.4 92.1 MCH 30.9 30.8 MCHC 33.5 33.5 RDW 15.1 15.3 Plt Count 323 335 MPV 7.6 7.7 Neut % (Auto) 65.5 57.7 Lymph % (Auto) 27.0 32.8 [place] % (Auto) 4.3 4.4 Eos % (Auto) 2.7 4.6 H Baso % (Auto) 0.5 0.5 Neut # (Auto) 5.8 4.9 Lymph # (Auto) 2.4 2.8 [place] # (Auto) 0.4 0.4 Eos # (Auto) 0.2 0.4 Baso # (Auto) 0.0 0.0 WBC Differential . . Differential Comment Auto diff final Auto diff final Sodium 141 Potassium 4.1 Chloride 102 Carbon Dioxide 31.8 Anion Gap 7 BUN 21 H Creatinine 1.12 H Estimated GFR 46 L Random Glucose 94 Calcium 8.6 Random Vancomycin 10.9 05/11/18 04:46 WBC RBC Hgb Hct MCV MCH MCHC RDW Plt Count MPV Neut % (Auto) Lymph % (Auto) [place] % (Auto) Eos % (Auto) Baso % (Auto) Neut # (Auto) Lymph # (Auto) [place] # (Auto) Eos # (Auto) Baso # (Auto) WBC Differential Differential Comment Sodium 140 Potassium 4.4 Chloride 101 Carbon Dioxide 32.7 H Anion Gap 6 BUN 19 H Creatinine 1.07 H Estimated GFR 48 L Random Glucose 88 Calcium 8.7 Random Vancomycin Microbiology 05/08/18 10:45 Tissue - Hip Gram Stain - Final 05/08/18 10:45 Tissue - Hip Wound Culture - Final Klebsiella pneumoniae 05/07/18 14:40 Blood - Peripheral Aerobic Blood Culture - Preliminary No growth in 3 days 05/07/18 14:40 Blood - Peripheral Anaerobic Blood Culture - Preliminary No growth in 3 days 05/07/18 14:40 Blood - Peripheral Aerobic Blood Culture - Preliminary No growth in 3 days 05/07/18 14:40 Blood - Peripheral Anaerobic Blood Culture - Preliminary No growth in 3 days - Procedures Status post revision right total hip replacement arthroplasty, 2-1/2 months ago. Status post proximal femoral osteotomy. Infection of the incision of the right total hip Debridement of right hip with placement of large wound VAC Assessment and Plan - Assessment and Plan Status post revision right total hip replacement arthroplasty, 2-1/2 months ago. Status post proximal femoral osteotomy. Infection of the incision of the right total hip. SURGERY: Debridement of right hip with placement of large wound VAC POD #3 PLAN: Stable orthopedically. No evidence that infection tracks down to total hip replacement. All of infection was in skin and subcutaneous tissue down to the fascia. Wound VAC will need to be changed , Monday and then follow a Monday schedule. Xarelto for DVT prophylaxis, Oxycodone for pain per medicine Progress rehab - Weightbearing as tolerated. Ortho will continue to follow while in hospital + Klebsiella, Consult for Infectious Disease placed, most likely will require long winder tender antibiotics D/C planning - rehab vs home with [facility] Monitor
[2018-05-11] MEDS: Metoprolol Tartrate 100 MG Tablet PO SCH ×2 (10:23→21:17)
[2018-05-11] MEDS: Ferrous Sulfate 325 MG Tablet PO SCH (10:24)
[2018-05-11] MEDS: Senna/Docusate Sodium 8.6/50 MG Tablet PO SCH ×2 (10:24→21:16)
[2018-05-11] MEDS: Multivitamin/Minerals Therapeutic Tablet PO SCH ×2 (10:25→21:16)
[2018-05-11] MEDS: Allopurinol 100 MG Tablet PO SCH (10:26)
[2018-05-11] MEDS: Rivaroxaban 20 MG Tablet PO SCH (10:39)
[2018-05-11] MEDS: Vancomycin Inj 1,000 MG in Sodium Chlor 0.9% Inj 250 ML IV.SIG SCH (13:04)
--- NOTE | 2018-05-11 18:09 | P.PNID ---
Subjective Remarks: pt co R hip pain no fever Antibiotics: ertapenem Allergies/Adverse Reactions: Allergies penicillin G Allergy (Unknown, Verified 05/07/18 15:22) Rash Objective Vital Signs 05/10/18 20:00 05/11/18 00:00 05/11/18 08:00 Temperature 97.7 F 97.4 F L 97.4 F L Pulse Rate 84 65 63 Respiratory Rate 18 16 16 Blood Pressure 168/70 H 139/63 142/58 H Pulse Oximetry 94 L 94 L 92 L 05/11/18 12:00 05/11/18 16:00 Temperature 97.3 F L 97.5 F L Pulse Rate 60 62 Respiratory Rate 18 18 Blood Pressure 133/59 L 149/67 H Pulse Oximetry 94 L Intake & Output 05/10/18 05/11/18 05/11/18 18:59 06:59 18:59 Intake Total 1000 / 1000 460 / 460 250 / 250 Output Total 1000 / 1000 0 / 0 Balance 1000 / 1000 -540 / -540 250 / 250 Intake: IV 1000 / 1000 100 / 100 250 / 250 LR 1000 mL Inj 1,000 ML @ 150 1000 / 1000 mls/hr IV.CONT .Q6H40M [facility] Rx#: [id number] INVanz Inj 1,000 MG In NS Inj 100 / 100 100 ML @ 100 mls/hr IV.SIG Q24H [facility] Rx#:[id number] Vancomycin Inj 1,000 MG In NS 250 / 250 Inj 250 ML @ 250 mls/hr IV.SIG Q24H [facility] Rx#:[id number] Oral 360 / 360 Output: Urine 1000 / 1000 Wound Drainage 0 / 0 Right Hip 0 / 0 Other: Mode Setting Right Hip Continuous Continuous # Voids 5 3 # Bowel Movements 0 05/07/18 14:40 Blood - Peripheral Aerobic Blood Culture - Preliminary No growth in 4 days 05/07/18 14:40 Blood - Peripheral Anaerobic Blood Culture - Preliminary No growth in 4 days 05/07/18 14:40 Blood - Peripheral Aerobic Blood Culture - Preliminary No growth in 4 days 05/07/18 14:40 Blood - Peripheral Anaerobic Blood Culture - Preliminary No growth in 4 days 05/08/18 10:45 Tissue - Hip Gram Stain - Final 05/08/18 10:45 Tissue - Hip Wound Culture - Final Klebsiella pneumoniae 05/07/18 16:00 Abscess - Leg Gram Stain - Final 05/07/18 16:00 Abscess - Leg Wound Culture - Final Klebsiella pneumoniae 05/08/18 10:45 Tissue - Hip Fungal Smear - Final No fungal elements seen 05/08/18 10:45 Tissue - Hip Fungal Culture - Pending 05/08/18 10:45 Tissue - Hip Acid Fast Bacilli Smear - Final No acid fast bacilli seen 05/08/18 10:45 Tissue - Hip Mycobacterial Culture - Pending Lab - Hematology Results 05/10/18 05/11/18 06:55 04:46 WBC 8.9 8.6 RBC 3.31 L 3.37 L Hgb 10.2 L 10.4 L Hct 30.5 L 31.0 L MCV 92.4 92.1 MCH 30.9 30.8 MCHC 33.5 33.5 RDW 15.1 15.3 Plt Count 323 335 MPV 7.6 7.7 Neut % (Auto) 65.5 57.7 Lymph % (Auto) 27.0 32.8 [place] % (Auto) 4.3 4.4 Eos % (Auto) 2.7 4.6 H Baso % (Auto) 0.5 0.5 Neut # (Auto) 5.8 4.9 Lymph # (Auto) 2.4 2.8 [place] # (Auto) 0.4 0.4 Eos # (Auto) 0.2 0.4 Baso # (Auto) 0.0 0.0 WBC Differential . . Differential Comment Auto diff final Auto diff final Lab - Chemistry Results 05/10/18 05/11/18 06:55 04:46 Sodium 141 140 Potassium 4.1 4.4 Chloride 102 101 Carbon Dioxide 31.8 32.7 H Anion Gap 7 6 BUN 21 H 19 H Creatinine 1.12 H 1.07 H Estimated GFR 46 L 48 L Random Glucose 94 88 Calcium 8.6 8.7 Imaging: ITS Impressions Hip CT 05/07/18 14:31 CONCLUSION: 1. Induration in the right lateral pelvic and upper thigh subcutaneous fat. There is also skin thickening. There is a elongated fluid collection seen in the subcutaneous fat measuring up to 11 cm in length represent hematoma, seroma , or abscess. Hip X-Ray 05/08/18 00:00 CONCLUSION: Expected postoperative changes status post right hip arthroplasty. Physical Exam: GENERAL: NAD SKIN: Warm and dry. CARDIOVASCULAR: Regular rate and rhythm. RESPIRATORY: No accessory muscle use. Clear to auscultation. Breath sounds equal bilaterally. GASTROINTESTINAL: Abdomen soft, non-tender, nondistended. Hepatic and splenic margins not palpable. MUSCULOSKELETAL: Extremities without clubbing, cyanosis, or edema. No obvious deformities. R hip VAC in palce with serosang dc NEUROLOGICAL: Awake and alert. No obvious cranial nerve deficits. Motor grossly within normal limits. Five out of 5 muscle strength in the arms and legs. Normal speech. PSYCHIATRIC: Appropriate mood and affect; insight and judgment normal. 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
--- NOTE | 2018-05-11 18:26 | P.PNIM ---
Subjective Interval history: Nursing denies any deterioration since last night. Patient says her pain is controlled with the oxycodone. Says that she has a daughter coming in town in about 2 days, but the daughter per case management says she is unable to take care of the patient. Physical Exam Vital signs: Vital Signs 05/10/18 20:00 05/11/18 00:00 05/11/18 08:00 Temperature 97.7 F 97.4 F L 97.4 F L Pulse Rate 84 65 63 Respiratory Rate 18 16 16 Blood Pressure 168/70 H 139/63 142/58 H Pulse Oximetry 94 L 94 L 92 L 05/11/18 12:00 05/11/18 16:00 Temperature 97.3 F L 97.5 F L Pulse Rate 60 62 Respiratory Rate 18 18 Blood Pressure 133/59 L 149/67 H Pulse Oximetry 94 L Intake & Output 05/10/18 05/11/18 05/11/18 18:59 06:59 18:59 Intake Total 1000 / 1000 460 / 460 250 / 250 Output Total 1000 / 1000 0 / 0 Balance 1000 / 1000 -540 / -540 250 / 250 Intake: IV 1000 / 1000 100 / 100 250 / 250 LR 1000 mL Inj 1,000 ML @ 150 1000 / 1000 mls/hr IV.CONT .Q6H40M [facility] Rx#: [id number] INVanz Inj 1,000 MG In NS Inj 100 / 100 100 ML @ 100 mls/hr IV.SIG Q24H [facility] Rx#:[id number] Vancomycin Inj 1,000 MG In NS 250 / 250 Inj 250 ML @ 250 mls/hr IV.SIG Q24H [facility] Rx#:[id number] Oral 360 / 360 Output: Urine 1000 / 1000 Wound Drainage 0 / 0 Right Hip 0 / 0 Other: Mode Setting Right Hip Continuous Continuous # Voids 5 3 # Bowel Movements 0 Narrative: Wound VAC in place over right hip Lying in bed, awake and alert, no acute distress, unlabored breathing Mild bilateral lower extremity edema in the feet which the patient says is chronic - Urinary Catheter Management Indwelling Urethral Catheter Cath placed during this visit: no Reason for continuing: Other continuation reason Results - Labs CBC & Chem 7: 05/11/18 04:46 05/11/18 04:46 Laboratory Results - last 24 hr 05/11/18 05/11/18 05/11/18 04:46 04:46 14:04 WBC 8.6 RBC 3.37 L Hgb 10.4 L Hct 31.0 L MCV 92.1 MCH 30.8 MCHC 33.5 RDW 15.3 Plt Count 335 MPV 7.7 Neut % (Auto) 57.7 Lymph % (Auto) 32.8 [place] % (Auto) 4.4 Eos % (Auto) 4.6 H Baso % (Auto) 0.5 Neut # (Auto) 4.9 Lymph # (Auto) 2.8 [place] # (Auto) 0.4 Eos # (Auto) 0.4 Baso # (Auto) 0.0 WBC Differential . Differential Comment Auto diff final Sodium 140 Potassium 4.4 Chloride 101 Carbon Dioxide 32.7 H Anion Gap 6 BUN 19 H Creatinine 1.07 H Estimated GFR 48 L Random Glucose 88 Calcium 8.7 Vancomycin Trough 27.2 H Microbiology 05/07/18 14:40 Blood - Peripheral Aerobic Blood Culture - Preliminary No growth in 4 days 05/07/18 14:40 Blood - Peripheral Anaerobic Blood Culture - Preliminary No growth in 4 days 05/07/18 14:40 Blood - Peripheral Aerobic Blood Culture - Preliminary No growth in 4 days 05/07/18 14:40 Blood - Peripheral Anaerobic Blood Culture - Preliminary No growth in 4 days - Procedures Status post revision right total hip replacement arthroplasty, 2-1/2 months ago. Status post proximal femoral osteotomy. Infection of the incision of the right total hip Debridement of right hip with placement of large wound VAC Assessment and Plan - Assessment (1) Wound infection after surgery Code(s): T81.4XXA - Infection following a procedure, initial encounter Status : Acute (2) Atrial fibrillation Code(s): I48.91 - Unspecified atrial fibrillation Status: Chronic (3) CHF (congestive heart failure) Code(s): I50.9 - Heart failure, unspecified Status: Chronic (4) HTN (hypertension) Code(s): I10 - Essential (primary) hypertension Status: Chronic (5) History of pacemaker Code(s): Z95.0 - Presence of cardiac pacemaker Status: Chronic - Plan Klebsiella Wound infection -IV Rocephin per infectious disease POD 3 debridement/irrigation with irrigation of skin subcutaneous tissue and muscle/fascia. Infection extended to fascia but not through it. Large wound vac placed. A. fib -rate control with Metoprolol Xarelto CHF - 06/2017 EF 60-65%; unclear whether was prior overload from uncontrolled afib? -Continue home Bumetanide -Pain control -Percocet pain scale, morphine for break through pain DES > 1.45-> 1.12 -Patient eating/drinking normally; will continue IVF overnight and plan to stop tomorrow morning HTN - home Metoprolol, Isosorbide Other chronic conditions -Will continue home Allopurinol, Oxybutynin
[2018-05-12] MEDS: Isosorbide Mononitrate 20 MG Tablet PO SCH ×2 (06:04→14:11)
[2018-05-12] MEDS: Levothyroxine 125 MCG Tablet PO SCH (06:04)
[2018-05-12 08:43] LABS: Vancomycin,Random 20.5 Comment
[2018-05-12] MEDS: Acetaminophen 325 MG Tablet PO PRN ×2 (08:58→14:11)
[2018-05-12] MEDS: Senna/Docusate Sodium 8.6/50 MG Tablet PO SCH ×2 (08:58→20:24)
[2018-05-12] MEDS: Metoprolol Tartrate 100 MG Tablet PO SCH ×2 (09:00→20:24)
[2018-05-12] MEDS: Ferrous Sulfate 325 MG Tablet PO SCH (09:00)
[2018-05-12] MEDS: Multivitamin/Minerals Therapeutic Tablet PO SCH ×2 (09:00→20:24)
[2018-05-12] MEDS: Allopurinol 100 MG Tablet PO SCH (09:00)
--- NOTE | 2018-05-12 10:35 | P.PNOP ---
Subjective Interval history: Patient comfortable. Pain controlled. NAD. Physical Exam Vital signs: Vital Signs 05/11/18 12:00 05/11/18 16:00 05/11/18 20:00 Temperature 97.3 F L 97.5 F L 97.9 F Pulse Rate 60 62 93 H Respiratory Rate 18 18 16 Blood Pressure 133/59 L 149/67 H 163/77 H Pulse Oximetry 94 L 94 L 05/12/18 00:00 05/12/18 08:00 Temperature 98.0 F 97.4 F L Pulse Rate 70 61 Respiratory Rate 18 18 Blood Pressure 157/76 H 139/65 Pulse Oximetry 94 L 93 L Intake & Output 05/11/18 05/12/18 05/12/18 18:59 06:59 18:59 Intake Total 250 / 250 740 / 740 Output Total 0 / 0 0 / 0 Balance 250 / 250 740 / 740 Weight 86.6 kg Intake: IV 250 / 250 Vancomycin Inj 1,000 MG In NS 250 / 250 Inj 250 ML @ 250 mls/hr IV.SIG Q24H [facility] Rx#:[id number] Oral 740 / 740 Output: Wound Drainage 0 / 0 0 / 0 Right Hip 0 / 0 0 / 0 Wound Vac Amount 0 / 0 Right Hip 0 / 0 Other: Mode Setting Right Hip Continuous Continuous # Voids 5 Right hip wound vac dressing intact no erythema noted around surgical incision calves soft negative Homans +sensation - Urinary Catheter Management Indwelling Urethral Catheter Cath placed during this visit: no Reason for continuing: Other continuation reason Results - Labs CBC & Chem 7: 05/11/18 04:46 05/12/18 05:58 Laboratory Results - last 24 hr 05/11/18 05/12/18 14:04 05:58 Creatinine 0.94 Estimated GFR 56 L Vancomycin Trough 27.2 H Random Vancomycin 20.5 Microbiology 05/07/18 14:40 Blood - Peripheral Aerobic Blood Culture - Preliminary No growth in 4 days 05/07/18 14:40 Blood - Peripheral Anaerobic Blood Culture - Preliminary No growth in 4 days 05/07/18 14:40 Blood - Peripheral Aerobic Blood Culture - Preliminary No growth in 4 days 05/07/18 14:40 Blood - Peripheral Anaerobic Blood Culture - Preliminary No growth in 4 days - Procedures Status post revision right total hip replacement arthroplasty, 2-1/2 months ago. Status post proximal femoral osteotomy. Infection of the incision of the right total hip Debridement of right hip with placement of large wound VAC Assessment and Plan - Assessment and Plan Status post revision right total hip replacement arthroplasty, 2-1/2 months ago. Status post proximal femoral osteotomy. Infection of the incision of the right total hip. SURGERY: Debridement of right hip with placement of large wound VAC POD #4 PLAN: Stable orthopedically. No evidence that infection tracks down to total hip replacement. All of infection was in skin and subcutaneous tissue down to the fascia. Wound VAC will need to be changed , Monday and then follow a Monday schedule. Xarelto for DVT prophylaxis, Oxycodone for pain per medicine Progress rehab - Weightbearing as tolerated. Infectious Disease is placing patient on a 6 week IV abx therapy Patient will need a PICC line for IV abx therapy and arrangements for wound dressing changes on Monday, Monday and Monday schedule. Orthopedically stable for discharge. Will need medical clearance. D/C planning - anticipating SNF F/U in 1-[address] Carlton Galindo or PA in office.
[2018-05-12] MEDS ORDERED: Pharmacy Ordered Lab Info OTHER ONE (11:45)
[2018-05-12] MEDS ORDERED: Vancomycin Inj 1,000 MG in Sodium Chlor 0.9% Inj 250 ML IV.SIG ONE (13:00)
[2018-05-12] MEDS: Rivaroxaban 20 MG Tablet PO SCH (14:27)
--- NOTE | 2018-05-12 15:15 | P.DCO ---
Post Hospital Infusion Therapy Location of Infusion Therapy: [facility] Infusion Therapy Order Patient Weight: 86.6 kg - Diagnosis (1) Wound infection after surgery Code(s): T81.4XXA - Infection following a procedure, initial encounter (2) Infection of right prosthetic hip joint Code(s): T84.51XA - Infection and inflammatory reaction due to internal right hip prosthesis, initial encounter - Administer Medication Ceftriaxone Dose: 2 grams IV Directions: q 24 hours Start Treatment: 05/12/18 Stop Treatment: 06/21/18 - Additional Information Venous Access: PICC Line Additional Instructions: [x] Peripheral flush and dressing changes per protocol [x] Implanted port and central online media buyer: * Implanted port: 10 ml Normal Saline followed by 5 ml Heparin 100 units/ml Heparin flush after each use and monthly to maintain. [] May leave port accessed during therapy. [] May leave peripheral site accessed for duration of therapy. [x] If patient has SOB or respiratory distress, check oxygen saturation. If less than 90% or clinical signs of respiratory distress, administer oxygen at 2 L/min. via nasal cannula and notify physician. [x] Anaphylaxis/Reaction orders: * Stop infusion. * Keep IV line open with saline flush. * Notify physician. * Monitor vital signs every 15 minutes until symptoms resolve. * Check Oxygen saturation; Oxygen at 2 L/min. via nasal cannula if less than 90% or clinical signs of respiratory distress. * Administer diphenhydramine (Benadryl) 25 mg IV STAT, (unless patient has received as pre-med). May repeat once, if necessary. * Solu-Cortef 250 mg IVP over 30-60 seconds, use 100 mg vials for each dissolution. * Epinephrine (1mg/1 ml) 0.3 mg subcutaneously or IVP now with any signs of respiratory distress. * Check with physician for new additional pre-med orders if patient is re- challenged or re-treated. [x] May remove PICC line when treatment complete, after confirming with Physician. [x] If the patient is admitted to the hospital, the ED, or transferred via [facility] , complete transfer form including medication reconciliation order sheet. Weekly Labs: CBC w/diff, CMP Additional Information: Follow up with Dr Abraham calvert for appointment Allergies penicillin G Allergy (Unknown, Verified 05/07/18 15:22) Rash (2) Infection of right prosthetic hip joint Qualifiers: Encounter type: initial encounter Qualified Code(s): T84.51XA - Infection and inflammatory reaction due to internal right hip prosthesis, initial encounter
--- NOTE | 2018-05-12 15:28 | P.DS ---
Date of admission: 05/07/18 18:57 Primary care physician: Ashley Almanzar Brief History from admission: 87-year-old female with a past medical history significant for atrial fibrillation anticoagulated on Xarelto, congestive heart failure, history of previous DVT and hypertension presents to the emergency department for evaluation of a right hip infection. The patient is status post right hip replacement on 02/22/[address] Galindo. She went to rehab until 04/29/18 when she went home. She is still not weightbearing on her right lower extremity. On Monday she noticed redness surrounding the right hip. This continued to worsen until today when she noticed drainage coming from the area. She went to Dr. Galindo's office who took a wound culture and sent the patient to the hospital for further evaluation. She denies any fever/chills. No chest pain or shortness of breath. No abdominal pain. No nausea/vomiting/diarrhea. No lateralizing signs/symptoms. DS: Diagnosis - Discharge Diagnosis (1) Wound infection after surgery Status: Acute (2) Atrial fibrillation Status: Chronic (3) CHF (congestive heart failure) Status: Chronic (4) HTN (hypertension) Status: Chronic (5) History of pacemaker Status: Chronic DS: Summary Hospital Course: Patient was admitted. Underwent the following procedures: Status post revision right total hip replacement arthroplasty, 2-1/2 months ago. Status post proximal femoral osteotomy. Infection of the incision of the right total hip Debridement of right hip with placement of large wound VAC Is tolerating p.o. intake well and p.o. pain medication. Patient's wound grew out Klebsiella, infectious disease was consulted and arranged for IV antibiotics for a few weeks. Patient has met maximal benefit from hospitalization is clinically stable for discharge. - Time Spent with Patient Total time spent providing and/or coordinating discharge services: Less than 30 minutes - Quality: VTE Deep Vein Thrombosis/Pulmonary Embolism Present on Admission: No Exam Vital signs: Vital Signs 05/11/18 16:00 05/11/18 20:00 05/12/18 00:00 Temperature 97.5 F L 97.9 F 98.0 F Pulse Rate 62 93 H 70 Respiratory Rate 18 16 18 Blood Pressure 149/67 H 163/77 H 157/76 H Pulse Oximetry 94 L 94 L 94 L 05/12/18 08:00 05/12/18 12:00 Temperature 97.4 F L 97.3 F L Pulse Rate 61 60 Respiratory Rate 18 18 Blood Pressure 139/65 114/62 Pulse Oximetry 93 L 95 Intake & Output 05/11/18 05/12/18 05/12/18 18:59 06:59 18:59 Intake Total 250 / 250 740 / 740 Output Total 0 / 0 0 / 0 Balance 250 / 250 740 / 740 Weight 86.6 kg 86.6 kg Intake: IV 250 / 250 Vancomycin Inj 1,000 MG In NS 250 / 250 Inj 250 ML @ 250 mls/hr IV.SIG Q24H PATRICE Rx#:[id number] Oral 740 / 740 Output: Wound Drainage 0 / 0 0 / 0 Right Hip 0 / 0 0 / 0 Wound Vac Amount 0 / 0 Right Hip 0 / 0 Other: Mode Setting Right Hip Continuous Continuous # Voids 5 Narrative: Wound VAC in place over right hip, lying in bed, no acute distress, unlabored breathing Results Procedures completed during hospitalization: Status post revision right total hip replacement arthroplasty, 2-1/2 months ago. Status post proximal femoral osteotomy. Infection of the incision of the right total hip Debridement of right hip with placement of large wound VAC Labs on day of discharge: Labs from last 24 hours 05/12/18 05:58 Creatinine 0.94 Estimated GFR 56 L Random Vancomycin 20.5 - Impressions ITS Impressions Hip CT 05/07/18 14:31 CONCLUSION: 1. Induration in the right lateral pelvic and upper thigh subcutaneous fat. There is also skin thickening. There is a elongated fluid collection seen in the subcutaneous fat measuring up to 11 cm in length represent hematoma, seroma , or abscess. Hip X-Ray 05/08/18 00:00 CONCLUSION: Expected postoperative changes status post right hip arthroplasty. Discharge Plan - Discharge Disposition Patient Disposition: 03 Discharge to SNF - Discharge Condition Condition: Good - Discharge Order Discharge Orders: Discharge Order (Routine); Ordered 05/12/18 Ordered By: Darron Arguello - Physicians Team Primary Care Provider: Ashley Almanzar Attending Provider: Darron Arguello Other Providers: [employer] ; Carlton Galindo MD ; [facility] ; [facility] ; Snehal Sagastume MD
[2018-05-12] MEDS: Melatonin 5 MG Tablet PO PRN (22:15)
[2018-05-13] MEDS: Isosorbide Mononitrate 20 MG Tablet PO SCH ×2 (06:01→20:38)
[2018-05-13] MEDS: Levothyroxine 125 MCG Tablet PO SCH (06:02)
[2018-05-13 08:01] LABS: Vancomycin,Random 14.1 Comment
--- NOTE | 2018-05-13 09:54 | P.PNOP ---
Subjective Interval history: Patient comfortable. Pain controlled. Physical Exam Vital signs: Vital Signs 05/12/18 12:00 05/12/18 16:00 05/12/18 20:00 Temperature 97.3 F L 97.7 F 96.9 F L Pulse Rate 60 76 60 Respiratory Rate 18 18 18 Blood Pressure 114/62 144/80 H 119/60 Pulse Oximetry 95 93 L 94 L 05/13/18 00:00 05/13/18 08:00 Temperature 97.6 F 97.5 F L Pulse Rate 60 60 Respiratory Rate 16 17 Blood Pressure 105/60 154/68 H Pulse Oximetry 95 93 L Intake & Output 05/12/18 05/13/18 05/13/18 18:59 06:59 18:59 Intake Total 900 / 900 Output Total 150 / 150 150 / 150 Balance 750 / 750 -150 / -150 Weight 86.6 kg Intake: Oral 900 / 900 Output: Stool 100 / 100 Urine/Stool Mix 50 / 50 Wound Drainage 150 / 150 Right Hip 150 / 150 Other: Mode Setting Right Hip Continuous Continuous # Voids 5 2 Date of Last Bowel Movement 05/12/18 # Bowel Movements 1 Right hip: wound vac dressing intact no erythema noted calves soft negative Homans distally motor, neuro and sensory intact - Urinary Catheter Management Indwelling Urethral Catheter Cath placed during this visit: no Reason for continuing: Other continuation reason Results - Labs CBC & Chem 7: 05/11/18 04:46 05/13/18 07:00 Laboratory Results - last 24 hr 05/13/18 07:00 Creatinine 0.93 Estimated GFR 57 L Random Vancomycin 14.1 Microbiology 05/07/18 14:40 Blood - Peripheral Aerobic Blood Culture - Final No growth in 5 days 05/07/18 14:40 Blood - Peripheral Anaerobic Blood Culture - Final No growth in 5 days 05/07/18 14:40 Blood - Peripheral Aerobic Blood Culture - Final No growth in 5 days 05/07/18 14:40 Blood - Peripheral Anaerobic Blood Culture - Final No growth in 5 days - Procedures Status post revision right total hip replacement arthroplasty, 2-1/2 months ago. Status post proximal femoral osteotomy. Infection of the incision of the right total hip Debridement of right hip with placement of large wound VAC Assessment and Plan - Assessment and Plan Status post revision right total hip replacement arthroplasty, 2-1/2 months ago. Status post proximal femoral osteotomy. Infection of the incision of the right total hip. SURGERY: Debridement of right hip with placement of large wound VAC POD #5 PLAN: Stable orthopedically. No evidence that infection tracks down to total hip replacement. All of infection was in skin and subcutaneous tissue down to the fascia. Wound VAC will need to be changed , Monday and then follow a Monday schedule. Xarelto for DVT prophylaxis, Oxycodone for pain per medicine Progress rehab - Weightbearing as tolerated. IV abx therapy per ID Patient will need a PICC line for IV abx therapy and arrangements for wound vac dressing changes on Monday, Monday and Monday schedule. Orthopedically stable for discharge. Will need medical clearance. D/C planning - anticipating SNF F/U in 1-[address] Carlton Galindo or PA in office.
[2018-05-13] MEDS: Vancomycin Inj 1,000 MG in Sodium Chlor 0.9% Inj 250 ML IV.SIG SCH (10:23)
[2018-05-13] MEDS: Ferrous Sulfate 325 MG Tablet PO SCH (10:25)
[2018-05-13] MEDS: Metoprolol Tartrate 100 MG Tablet PO SCH ×2 (10:26→20:41)
[2018-05-13] MEDS: Multivitamin/Minerals Therapeutic Tablet PO SCH ×2 (10:26→20:41)
[2018-05-13] MEDS: Senna/Docusate Sodium 8.6/50 MG Tablet PO SCH ×2 (10:26→20:41)
[2018-05-13] MEDS: Allopurinol 100 MG Tablet PO SCH (10:26)
[2018-05-13] MEDS: Rivaroxaban 20 MG Tablet PO SCH (10:51)
[2018-05-13] MEDS: Melatonin 5 MG Tablet PO PRN (20:42)
[2018-05-14] MEDS: Levothyroxine 125 MCG Tablet PO SCH (06:24)
[2018-05-14] MEDS: Isosorbide Mononitrate 20 MG Tablet PO SCH ×2 (06:24→16:16)
[2018-05-14] MEDS: Sod Chloride 0.9% Inj 1,000 ML IV.CONT SCH (07:39)
--- NOTE | 2018-05-14 07:51 | P.PNOP ---
Subjective Interval history: Patient complains of having no wound VAC change control coordinator the weekend. It was written for Monday but apparently not done. Moderate pain in the region of her incision Physical Exam Vital signs: Vital Signs 05/13/18 08:00 05/13/18 12:00 05/13/18 20:00 Temperature 97.5 F L 97.5 F L 97.6 F Pulse Rate 60 72 62 Respiratory Rate 17 16 16 Blood Pressure 154/68 H 123/58 L 102/54 L Pulse Oximetry 93 L 95 94 L 05/14/18 00:00 Temperature 97.4 F L Pulse Rate 60 Respiratory Rate 16 Blood Pressure 108/59 L Pulse Oximetry 97 Intake & Output 05/13/18 05/14/18 05/14/18 18:59 06:59 18:59 Intake Total 1600 / 1600 Output Total 150 / 150 Balance -150 / -150 1600 / 1600 Intake: IV 1600 / 1600 Rocephin Inj 2,000 MG In NS Inj 100 / 100 100 ML @ 200 mls/hr IV.SIG Q24H PATRICE Rx#:[id number] Output: Wound Drainage 150 / 150 Right Hip 150 / 150 Other: Mode Setting Right Hip Continuous # Voids 3 # Urine Diapers 2 # Bowel Movements 0 Narrative: Wound VAC in place. Mild swelling. No redness - Urinary Catheter Management Indwelling Urethral Catheter Cath placed during this visit: no Reason for continuing: Other continuation reason Results - Labs CBC & Chem 7: 05/11/18 04:46 05/13/18 07:00 Laboratory Results - last 24 hr 05/13/18 07:00 Creatinine 0.93 Estimated GFR 57 L Random Vancomycin 14.1 - Procedures Status post revision right total hip replacement arthroplasty, 2-1/2 months ago. Status post proximal femoral osteotomy. Infection of the incision of the right total hip Debridement of right hip with placement of large wound VAC Assessment and Plan - Assessment and Plan Status post revision right total hip replacement arthroplasty, 2-1/2 months ago. Status post proximal femoral osteotomy. Infection of the incision of the right total hip. SURGERY: Debridement of right hip with placement of large wound VAC POD #6 PLAN: Stable orthopedically. No evidence that infection tracks down to total hip replacement. All of infection was in skin and subcutaneous tissue down to the fascia. Wound VAC will need to be changed Monday schedule. Xarelto for DVT prophylaxis, Oxycodone for pain per medicine Progress rehab - Weightbearing as tolerated. IV abx therapy per ID Patient will need a PICC line for IV abx therapy and arrangements for wound vac dressing changes on Monday, Monday and Monday schedule. Orthopedically stable for discharge. Will need medical clearance. D/C planning - anticipating [facility] PICC line to be placed with interventional radiology today
[2018-05-14] MEDS: Senna/Docusate Sodium 8.6/50 MG Tablet PO SCH (09:30)
[2018-05-14] MEDS: Metoprolol Tartrate 100 MG Tablet PO SCH (09:31)
[2018-05-14] MEDS: Ferrous Sulfate 325 MG Tablet PO SCH (09:31)
[2018-05-14] MEDS: Allopurinol 100 MG Tablet PO SCH (09:31)
[2018-05-14] MEDS: Multivitamin/Minerals Therapeutic Tablet PO SCH (09:31)
[2018-05-14] MEDS: Vancomycin Inj 1,000 MG in Sodium Chlor 0.9% Inj 250 ML IV.SIG SCH (09:32)
[2018-05-14] MEDS: Rivaroxaban 20 MG Tablet PO SCH (11:26)
[2018-05-14] MEDS ORDERED: Morphine Inj 4 MG/ML Vial IV.PUSH ONE (11:43)
[2018-05-14] MEDS ORDERED: *Heparin Central Flush 100 UNIT/ML 5 ML Vial PERIprocedural ONLY IV.FLUSH ONE (14:30)
--- NOTE | 2018-05-14 15:03 | P.RAD ---
Post PICC Progress Note - Pre Procedure Diagnosis (1) Wound infection after surgery - Post Procedure Diagnosis (1) Wound infection after surgery - Procedure Procedure: right PICC line placement Supervising Radiologist: Andrzej Ayala MD - Device Side: right Device: single lumen PICC Line Length (cm): 36 Catheter: Power PICC - Plan of Activity Patient to Unit: Nursing Unit Patient Condition: Good PICC line can be used immediately
--- NOTE | 2018-05-14 15:49 | IR ---
EXAM DATE: 05/14/2018 2:49 PM EDT AGE/SEX: 87 years / Female INDICATIONS: Patient with history of right total hip replacement infection in need of PICC line plac ement for antibiotics. CLINICAL DATA: This is the patient's initial encounter. Patient reports that signs and symptoms have been present for 2 weeks and indicates a pain score of 3/10. MEDICAL/SURGICAL HISTORY: Hypertension. A-Fib, CHF, DVT Pacemaker. Thyroidectomy. Hysterecto my. COMPARISON: [facility] [place], POC ULTRASOUND VASCULAR ACCESS TEAM, 05/13/2018. . FLUORO TIME (min): 0.3 IMAGE SERIES: 1 ACCESS SITE: Right basilic vein DEVICE(S): 4 [place] single lumen X36CM Xcela Power PICC . . PROCEDURE : 1. Ultrasound guidance for venous catheterization. 2. Ultrasound guided central venous Power PICC line placement. The risks, benefits and alternatives to the procedure were explained and verbal and written consent w as obtained. The site was prepped in sterile fashion. Full sterile technique was used, including ca p, mask, sterile gloves and gown and a large sterile sheet. Hand hygiene and 2% chlorhexidine prep w as utilized per protocol for cutaneous antisepsis with appropriate dry time for site. Sterile gel an d sterile probe cover were utilized for ultrasound guidance. The skin and subcutaneous tissues were infiltrated with local anesthetic solution. Under direct ultrasound guidance, a suitable vein was accessed and a measuring guidewire was introduc ed and positioned in the central venous system. The ultrasound images depicting access guidance were saved and stored to PACS for permanent record. A Power Injectable PICC line was cut to prescribed length and introduced, positioned with tip at the cavoatrial junction level. The line was flushed and secured per protocol. Chest radiograph is to be obtained to confirm position. CONCLUSION: 1. Uncomplicated central venous Power PICC line placement. 2. The PICC line can be used immediately. Electronically signed by: Andrzej Ayala MD 05/14/2018 3:48 PM EDT
--- NOTE | 2018-05-14 16:38 | XR ---
EXAM DATE: 05/14/2018 4:31 PM EDT AGE/SEX: 87 years / Female INDICATIONS: Post right side picc line placement. CLINICAL DATA: This is the patient's initial encounter. Patient reports that signs and symptoms have been present for 2 days and indicates a pain score of 0/10. MEDICAL/SURGICAL HISTORY: Hypertension. Congestive heart failure. a-fib, DVT Pacemaker. Hyst erectomy. thyroidectomy COMPARISON: [facility] [place], [place] PULMONARY ANGIOGRAM, 02/23/2016. . FINDINGS: Cardiomegaly, pacer leads and a right PICC line identified. There is aortic calcification. Right lung is clear. A hiatal hernia is suspected at the left lung base. Tip of the right PICC line is noted to extend to the expected location of the SVC. I do not see a pneumothorax. High riding humeral heads a re noted bilaterally. CONCLUSION: Right PICC line placement as above. Electronically signed by: Raffaele Junior MD 05/14/2018 4:37 PM EDT
[2018-05-15] MEDS ORDERED: Pharmacy Ordered Lab Info OTHER ONE (09:45)
== END 2018-05-14 18:54 ==
LOC: NEPE 13:36 → NEDA 18:57 → N07 20:21
PROVIDERS: ADMIT Hospitalist; ATTEND Hospitalist